=== PATIENT | female | born 1950 | race Hispanic/Latino ===

== ENCOUNTER 2017-11-22 17:10 | Inpatient (IN) | payer MEDICARE, OTHER ==
--- NOTE | 2017-11-22 17:44 | ED PDOC ---
Arrival/HPI - General Chief Complaint: Syncope Time Seen by Provider: 11/22/17 17:11 Historian: Patient - History of Present Illness Narrative History of Present Illness (Text): 11/22/17 17:35 67 year old claustrophobic female, with past medical history of hypertension, was referred to the Emergency department by her PMD, Dr. Waite for tachycardia today. Patient informs possible syncopal episode Wednesday, for which she was seen in the Urgent Care and later discharged home. Patient denies hitting her head or any other trauma. Patient informs visiting her PMD today, where she had an elevated heart rate bringing her to the Emergency department. Patient denies any fever, headache, chills, nausea, vomiting, diarrhea, chest pain, shortness of breath or any other complaints. PMD: Dr. Waite Time/Duration: Prior to Arrival Symptom Onset: Gradual Symptom Course: Unchanged Context: Other (PMD's office) Past Medical History - Provider Review Nursing Documentation Reviewed: Yes - Infectious Disease Hx of Infectious Diseases: None - Reproductive Menopause: Yes - Psychiatric Hx Anxiety: Yes Hx Substance Use: No - Anesthesia Hx Anesthesia: No Family/Social History - Physician Review Nursing Documentation Reviewed: Yes Family/Social History: No Known Family HX Smoking Status: Current Some Days Smoker Hx Alcohol Use: No Hx Substance Use: No Allergies/Home Meds Allergies/Adverse Reactions: Allergies No Known Allergies Allergy (Unverified 11/22/17 17:26) Home Medications: Home Meds Medication Instructions Recorded Confirmed Albuterol HFA [Ventolin HFA 90 0.09 mg IH PRN PRN 11/22/17 11/22/17 mcg/actuation (8 g)] Lisinopril [Zestril] 20 mg PO DAILY 11/22/17 11/22/17 Review of Systems - Physician Review All systems were reviewed & negative as marked: Yes - Review of Systems Constitutional: absent: Fevers Respiratory: absent: SOB Cardiovascular: Other (tachycardia). absent: Chest Pain Gastrointestinal: absent: Abdominal Pain, Diarrhea, Nausea, Vomiting Neurological: absent: Headache Physical Exam Vital Signs Reviewed: Yes Vital Signs Temp Pulse Resp BP Pulse Ox 11/22/17 18:06 140 H 144/80 11/22/17 17:25 97.9 F 145 H 24 143/70 97 Temperature: Afebrile Blood Pressure: Normal Pulse: Tachycardic Respiratory Rate: Normal Appearance: Positive for: Well-Appearing, Non-Toxic, Comfortable Pain Distress: None Mental Status: Positive for: Alert and Oriented X 3 - Systems Exam Head: Present: Atraumatic, Normocephalic Pupils: Present: PERRL Extroacular Muscles: Present: EOMI Conjunctiva: Present: Normal Mouth: Present: Moist Mucous Membranes Neck: Present: Normal Range of Motion Respiratory/Chest: Present: Clear to Auscultation, Good Air Exchange. No: Respiratory Distress, Accessory Muscle Use Cardiovascular: Present: Regular Rate and Rhythm, Normal S1, S2. No: Murmurs Abdomen: No: Tenderness, Distention, Peritoneal Signs Back: Present: Normal Inspection Upper Extremity: Present: Normal Inspection. No: Cyanosis, Edema Lower Extremity: Present: Normal Inspection. No: Edema Neurological: Present: GCS=15, CN II-XII Intact, Speech Normal Skin: Present: Warm, Dry, Normal Color. No: Rashes Psychiatric: Present: Alert, Oriented x 3, Normal Insight, Normal Concentration Medical Decision Making ED Course and Treatment: 11/22/17 17:47 Impression: 67 year old female presents to the Emergency department for tachycardia and possible syncopal episode. Plan: -- EKG -- Labs -- Chest X-ray -- Urinalysis -- Reassess and disposition Progress Notes: 11/22/17 17:40 EKG: Ordered, reviewed, and independently interpreted the EKG. Rate : 144 BPM Rhythm : Atrial flutter - Lab Interpretations Lab Results: 11/22/17 17:40 11/22/17 17:40 Lab Results 11/22/17 17:55: POC Glucose (mg/dL) 91 11/22/17 17:40: Sodium 141, Potassium 4.1, Chloride 104, Carbon Dioxide 24, Anion Gap 17, BUN 17, Creatinine 1.0, Est GFR ( Amer) > 60, Est GFR (Non- Af Amer) 55, Random Glucose 93, Calcium 9.4, Magnesium 2.0, Total Bilirubin 0.3 , AST 20, ALT 26, Alkaline Phosphatase 73, Lactate Dehydrogenase 441, Total Creatine Kinase 69, Troponin I Pending, NT-Pro-B Natriuret Pep Pending, Total Protein 7.3, Albumin 4.0, Globulin 3.4, Albumin/Globulin Ratio 1.2 11/22/17 17:40: WBC 7.8, RBC 4.82, Hgb 13.6, Hct 41.6, MCV 86.3, MCH 28.2, MCHC 32.7, RDW 14.3, Plt Count 262, MPV 9.8, Gran % 56.7, Lymph % (Auto) 35.1 H, [place] % (Auto) 6.6 H, Eos % (Auto) 1.3 L, Baso % (Auto) 0.3, Gran # 4.40, Lymph # (Auto) 2.7, [place] # (Auto) 0.5, Eos # (Auto) 0.1, Baso # (Auto) 0.02 - RAD Interpretation Narrative RAD Interpretations (Text): 11/22/17 18:13 Chest X-ray reviewed by radiologist, shows patchy airspace disease in the right lower lobe may represent atelectasis or pneumonia. Follow-up is advised. Radiology Orders: 11/22/17 17:27 CHEST PORTABLE [RAD] Stat Salvage Repairer: Radiologist - Medication Orders Current Medication Orders: Discontinued Medications Diltiazem HCl (Cardizem) 20 mg IVP STAT STA Stop: 11/22/17 17:54 Last Admin: 11/22/17 18:06 Dose: 20 mg IVP Administration Document 11/22/17 18:06 CAROLINA (Rec: 11/22/17 18:11 CAROLINA [id number]) Charges for Administration # of IVP Administrations 1 OCT Pulse and Blood Pressure Document 11/22/17 18:06 CAROLINA (Rec: 11/22/17 18:11 CAROLINA [id number]) Pulse Pulse Rate (60-90) 140 Blood Pressure Blood Pressure (100/60-150/90) 144/80 - Scribe Statement The provider has reviewed the documentation as recorded by the Scribe Jairo Motta. All medical record entries made by the Scribe were at my direction and personally dictated by me. I have reviewed the chart and agree that the record accurately reflects my personal performance of the history, physical exam, medical decision making, and the department course for this patient. I have also personally directed, reviewed, and agree with the discharge instructions and disposition. Disposition/Present on Arrival - Present on Arrival History of DVT/PE: No History of Uncontrolled Diabetes: No Urinary Catheter: No History of Decub. Ulcer: No History Surgical Site Infection Following: None - Disposition Forms: [employer] (Croatian)
--- NOTE | 2017-11-22 18:00 | RAD ---
HISTORY: Chest pain COMPARISON: No prior. FINDINGS: LUNGS: The lungs are hyperinflated and there is peribronchial thickening with chronic changes in both lungs. . There is patchy airspace disease in the right lower lobe. No active pulmonary disease. PLEURA: No significant pleural effusion identified, no pneumothorax apparent. CARDIOVASCULAR: Normal. OSSEOUS STRUCTURES: There are old fracture deformities in the right posterior 7th and 8th ribs. VISUALIZED UPPER ABDOMEN: Normal. OTHER FINDINGS: None. IMPRESSION: Patchy airspace disease in the right lower lobe may represent atelectasis or pneumonia. Follow-up is advised
[2017-11-22 18:05] LABS: BASO # 0.02 K/mm3 (0.0-2.0); BASO % 0.3 % (0.0-3.0); EOS # 0.1 (0.0-0.7); EOS % 1.3 % (1.5-5.0); GRAN # 4.4 (1.4-6.5); GRAN % 56.7 % (50.0-68.0); HEMOGLOBIN 13.6 g/dL (12.0-16.0); LYMPH # 2.7 (1.2-3.4); LYMPH % 35.1 % (22.0-35.0); MEAN CELL VOLUME 86.3 fl (80.0-105.0); MEAN CORPUSCULAR HEMOGLOBIN 28.2 pg (25.0-35.0); MEAN CORPUSCULAR HGB CONC 32.7 g/dl (31.0-37.0); MEAN PLATELET VOLUME 9.8 fl (7.0-11.0); MONO # 0.5 (0.1-0.6); MONO % 6.6 % (1.0-6.0); RBC 4.82 10^6/uL (3.5-6.1); RED CELL DISTRIBUTION WIDTH 14.3 % (11.5-14.5); WHITE BLOOD COUNT 7.8 10^3/ul (4.5-11.0)
[2017-11-22 18:08] LABS: ALB/GLOB RATIO 1.2 (1.1-1.8); ALT/SGPT 26 U/L (7-56); AST/SGOT 20 U/L (14-36); BLOOD UREA NITROGEN 17 mg/dL (7-21); CALCIUM 9.4 mg/dL (8.4-10.5); GFR AFRICAN-AMERICAN > 60; GFR NON-AFRICAN AMERICAN 55
[2017-11-22 18:13] LABS: INR 1.06 (0.93-1.08); PARTIAL THROMBOPLASTIN TIME 29.5 Seconds (25.1-36.5); PROTHROMBIN TIME 12.1 SECONDS (9.4-12.5)
[2017-11-22 18:20] LABS: B-TYPE NATRIURETIC PEPTIDE 777 pg/mL (0-450); TROPONIN I < 0.01 ng/mL
[2017-11-22] MEDS ORDERED: diltiaZEM IVPB 100mg in NS 100 ML IV PRN (18:22)
[2017-11-22] MEDS ORDERED: Enoxaparin 80 mg Syringe SC STA (18:44)
--- NOTE | 2017-11-22 19:30 | ED PDOC ---
Physical Exam Vital Signs Temp Pulse Resp BP Pulse Ox 11/22/17 18:45 136 H 20 132/77 99 11/22/17 18:10 140 H 20 120/71 98 11/22/17 18:06 140 H 144/80 11/22/17 17:25 97.9 F 145 H 24 143/70 97 Finger Stick Blood Glucose: 91 Medical Decision Making ED Course and Treatment: 11/22/17 19:27 Case was d/w soccer ball assembler .To evaluate pt. in Emergency department for ICU admission.Dr. Christopher previously discussed case with PMD who accepted to his service and agreed with CCU admit. 11/22/17 19:53 Pt. seen and evaluated by medical accountant and soccer ball assembler .Pt.admitted to CCU for further management. - Critical Care Critical Care Minutes: 45 minutes Narrative Critical Care (Text): 11/22/17 19:10 Case endorsed to me from awaiting ICU consultation.Pt. with hx. of hypertension from PMD office for onset rapid atrial fibrillation.Hx. of syncopal episode days prior treated in an Urgent Care center and released.Currently on Cardizem drip to control heart rate.Pt. was anticoagulated prior with Lovenox. - Lab Interpretations Lab Results: 11/22/17 17:40 11/22/17 17:40 Lab Results 11/22/17 17:55: POC Glucose (mg/dL) 91 11/22/17 17:40: Sodium 141, Potassium 4.1, Chloride 104, Carbon Dioxide 24, Anion Gap 17, BUN 17, Creatinine 1.0, Est GFR ( Amer) > 60, Est GFR (Non- Af Amer) 55, Random Glucose 93, Calcium 9.4, Magnesium 2.0, Total Bilirubin 0.3 , AST 20, ALT 26, Alkaline Phosphatase 73, Lactate Dehydrogenase 441, Total Creatine Kinase 69, Troponin I < 0.01, NT-Pro-B Natriuret Pep 777 H, Total Protein 7.3, Albumin 4.0, Globulin 3.4, Albumin/Globulin Ratio 1.2 11/22/17 17:40: PT 12.1, INR 1.06, APTT 29.5 11/22/17 17:40: WBC 7.8, RBC 4.82, Hgb 13.6, Hct 41.6, MCV 86.3, MCH 28.2, MCHC 32.7, RDW 14.3, Plt Count 262, MPV 9.8, Gran % 56.7, Lymph % (Auto) 35.1 H, [place] % (Auto) 6.6 H, Eos % (Auto) 1.3 L, Baso % (Auto) 0.3, Gran # 4.40, Lymph # (Auto) 2.7, [place] # (Auto) 0.5, Eos # (Auto) 0.1, Baso # (Auto) 0.02 - RAD Interpretation Radiology Orders: 11/22/17 17:27 CHEST PORTABLE [RAD] Stat - Medication Orders Current Medication Orders: diltiaZEM IVPB 100mg in NS (Cardizem 100mg In Ns) 100 mls @ 5 mls/hr IV .Q20H PRN; Protocol; 5 MG/HR PRN Reason: TITRATE PER MD ORDER Last Admin: 11/22/17 18:52 Dose: 5 mls/hr eMAR Start Stop Document 11/22/17 18:52 CAROLINA (Rec: 11/22/17 18:52 CAROLINA [id number]) Intravenous Solution Start Date 11/22/17 Start Time 18:52 Discontinued Medications Diltiazem HCl (Cardizem) 20 mg IVP STAT STA Stop: 11/22/17 17:54 Last Admin: 11/22/17 18:06 Dose: 20 mg IVP Administration Document 11/22/17 18:06 CAROLINA (Rec: 11/22/17 18:11 CAROLINA [id number]) Charges for Administration # of IVP Administrations 1 MAR Pulse and Blood Pressure Document 11/22/17 18:06 CAROLINA (Rec: 11/22/17 18:11 CAROLINA [id number]) Pulse Pulse Rate (60-90 beats/min) 140 Blood Pressure Blood Pressure (100/60-150/90 mm Hg) 144/80 Enoxaparin Sodium (Lovenox) 80 mg SC STAT STA PRN Reason: Protocol Stop: 11/22/17 18:45 Last Admin: 11/22/17 18:52 Dose: 80 mg Subcutaneous Administrations Document 11/22/17 18:52 CAROLINA (Rec: 11/22/17 18:53 CAROLINA [id number]) Injection Site MAR Injection Site Left Abdomen Charges for Administration # of Subcutaneous Administrations 1 Disposition/Present on Arrival - Present on Arrival Any Indicators Present on Arrival: No History of DVT/PE: No History of Uncontrolled Diabetes: No Urinary Catheter: No History of Decub. Ulcer: No History Surgical Site Infection Following: None - Disposition Have Diagnosis and Disposition been Completed?: Yes Diagnosis: Rapid atrial fibrillation Disposition: HOSPITALIZED Disposition Time: 19:53 Patient Plan: Admission Condition: STABLE Referrals: Abdiaziz Arceo MD [Primary Care Provider] - Follow up with primary Forms: [employer] (Tajik)
--- NOTE | 2017-11-22 20:32 | CP.PCM.CON ---
History of Present Illness - History of Present Illness History of Present Illness: ICU Consult Note This is a 67yo female with past medical history of HTN and tobacco abuse here for rapid heart rate. She was at Dr. Arceo's office when she was found to be tachycardic. Patient was found to be in a.fib in the office and was sent to the ED. Patient reports she did have a pre-syncopal episode the other day where she felt dizzy, but did not lose consciousness and did not hit her head. She felt heart palpitations but denies chest pain, shortness of breath, nausea/vomiting/ diarrhea, fever/chills, or recent travel. She has never seen a ip paralegal before. In ED, the EKG showed a.flutter with 2:1 conduction and was placed on Cardizem drip. She received therapeutic dose of Lovenox in the ED. ICU was consulted for further management. Past medical history: HTN, tobacco abuse, PE 30yrs ago, depression Past surgical history: Cholecystectomy, ventral hernia repair Home meds: Lisinopril, Celexa All: NKDA Social history: Heavy smoker for many yrs, denies EtOH or drug use. Lives with family Family history: DM, HTN PMD: Dr. Arceo Review of Systems - Review of Systems Review of Systems: As per HPI Past Patient History - Infectious Disease Hx of Infectious Diseases: None - Past Social History Smoking Status: Current Some Days Smoker - PSYCHIATRIC Hx Anxiety: Yes Hx Substance Use: No - ANESTHESIA Hx Anesthesia: No Meds Allergies/Adverse Reactions: Allergies Allergy/AdvReac Type Severity Reaction Status Date / Time No Known Allergies Allergy Unverified 11/22/17 17:26 - Medications Medications: Current Medications Famotidine (Pepcid) 20 mg PO BID YASMEEN diltiaZEM IVPB 100mg in NS (Cardizem 100mg In Ns) 100 mls @ 5 mls/hr IV .Q20H PRN; Protocol; 5 MG/HR PRN Reason: TITRATE PER MD ORDER Last Admin: 11/22/17 18:52 Dose: 5 mls/hr Physical Exam - Constitutional Appears: No Acute Distress - Head Exam Head Exam: ATRAUMATIC, NORMAL INSPECTION, NORMOCEPHALIC - Eye Exam Eye Exam: Normal appearance, PERRL Pupil Exam: NORMAL ACCOMODATION, PERRL - ENT Exam ENT Exam: Mucous Membranes Moist - Respiratory Exam Respiratory Exam: Clear to Auscultation Bilateral, NORMAL BREATHING PATTERN. absent: Rales, Rhonchi, Wheezes - Cardiovascular Exam Cardiovascular Exam: Tachycardia, Irregular Rhythm, +S1, +S2. absent: Gallop, Rubs, Systolic Murmur - GI/Abdominal Exam GI & Abdominal Exam: Hernia (large ventral hernia ), Normal Bowel Sounds, Soft. absent: Guarding, Rigid, Tenderness - Extremities Exam Extremities exam: Positive for: normal inspection. Negative for: calf tenderness, pedal edema - Neurological Exam Neurological exam: Alert, CN II-XII Intact, Normal Gait, Oriented x3 - Psychiatric Exam Psychiatric exam: Normal Affect, Normal Mood - Skin Skin Exam: Dry, Intact, Normal Color, Warm Results - Vital Signs Recent Vital Signs: Last Vital Signs Temp 97.9 F 11/22/17 17:25 Pulse 136 H 11/22/17 18:45 Resp 20 11/22/17 18:45 BP 132/77 11/22/17 18:45 Pulse Ox 99 11/22/17 18:45 - Labs Result Diagrams: 11/22/17 17:40 11/22/17 17:40 Labs: Laboratory Results - last 24 hr 11/22/17 11/22/17 11/22/17 17:40 17:40 17:40 WBC 7.8 RBC 4.82 Hgb 13.6 Hct 41.6 MCV 86.3 MCH 28.2 MCHC 32.7 RDW 14.3 Plt Count 262 MPV 9.8 Gran % 56.7 Lymph % (Auto) 35.1 H [place] % (Auto) 6.6 H Eos % (Auto) 1.3 L Baso % (Auto) 0.3 Gran # 4.40 Lymph # (Auto) 2.7 [place] # (Auto) 0.5 Eos # (Auto) 0.1 Baso # (Auto) 0.02 PT 12.1 INR 1.06 APTT 29.5 Sodium 141 Potassium 4.1 Chloride 104 Carbon Dioxide 24 Anion Gap 17 BUN 17 Creatinine 1.0 Est GFR ( Amer) > 60 Est GFR (Non-Af Amer) 55 POC Glucose (mg/dL) Random Glucose 93 Calcium 9.4 Magnesium 2.0 Total Bilirubin 0.3 AST 20 ALT 26 Alkaline Phosphatase 73 Lactate Dehydrogenase 441 Total Creatine Kinase 69 Troponin I < 0.01 NT-Pro-B Natriuret Pep 777 H Total Protein 7.3 Albumin 4.0 Globulin 3.4 Albumin/Globulin Ratio 1.2 11/22/17 17:55 WBC RBC Hgb Hct MCV MCH MCHC RDW Plt Count MPV Gran % Lymph % (Auto) [place] % (Auto) Eos % (Auto) Baso % (Auto) Gran # Lymph # (Auto) [place] # (Auto) Eos # (Auto) Baso # (Auto) PT INR APTT Sodium Potassium Chloride Carbon Dioxide Anion Gap BUN Creatinine Est GFR ( Amer) Est GFR (Non-Af Amer) POC Glucose (mg/dL) 91 Random Glucose Calcium Magnesium Total Bilirubin AST ALT Alkaline Phosphatase Lactate Dehydrogenase Total Creatine Kinase Troponin I NT-Pro-B Natriuret Pep Total Protein Albumin Globulin Albumin/Globulin Ratio Assessment & Plan - Assessment and Plan (Free Text) Assessment: This is a 67yo female with past medical history of HTN, PE (30yrs ago), depression and tobacco abuse here for atrial flutter. Plan: Neurology: Patient A&O x 3 CV: A.flutter on EKG 2:1 conduction On Cardizem drip- pt continues to be tachy If tachycardia continues will give amiodarone bolus and will switch to amio drip and d/c cardizem Troponin <0.01 x 1- will trend Therapeutic Lovenox Will check TSH, HgbA1c, Lipid panel Serial EKG Echo ordered Cardio consulted- pt requested to be seen by Dr. Kruger Pulm: Tobacco abuse- not diagnosed with COPD Maintain spO2>90% Aspiration precaution Duoneb prn Pt refused nicotine patch at this time GI: Pepcid Heart healthy diet Heme: Hgb stable no overt signs of bleeding Nephro: Will monitor electrolytes and replace as needed ID: No sign of infection at this time. Endo: Maintain euvolemia, euglycemia GI ppx: Pepcid DVT ppx: Lovenox Case seen, discussed and reviewed with attending. Temo Villanueva PGY2 - Date & Time Date: 11/22/17 Time: 20:34
[2017-11-22] MEDS ORDERED: Albuterol-Ipratrop 3 mg / 0.5 (3 ml) UD IH PRN (20:39)
[2017-11-22 21:03] LABS: HDL CHOLESTEROL 45 mg/dL (29-60)
[2017-11-22 21:07] LABS: LDL CHOLESTEROL 148 mg/dL (0-129)
[2017-11-22] MEDS ORDERED: Amiodarone 150 mg/D5W 100 ml 150 MG/100 ML BAG IVPB ONE (21:57)
[2017-11-22] MEDS ORDERED: Amiodarone 360 mg/D5W 200 ml 360 MG/200 ML BAG IV SCH ×2 (22:00→22:26)
[2017-11-22] MEDS ORDERED: Amiodarone 360 mg/D5W 200 ml 360 MG/200 ML BAG IV ONE ×2 (22:27→22:30)
[2017-11-23] LABS: TROPONIN I < 0.01 ng/mL
[2017-11-23 02:00] VITALS: BMI 33.8
[2017-11-23] MEDS ORDERED: DiphenhydrAMINE 50 mg/ml Inj IVP ONE (02:29)
[2017-11-23] MEDS ORDERED: Amiodarone 360 mg/D5W 200 ml 360 MG/200 ML BAG IV SCH (04:30)
[2017-11-23 06:55] LABS: BASO # 0.01 K/mm3 (0.0-2.0); BASO % 0.1 % (0.0-3.0); EOS # 0.1 (0.0-0.7); EOS % 1.8 % (1.5-5.0); GRAN # 3.57 (1.4-6.5); GRAN % 48.7 % (50.0-68.0); HEMOGLOBIN 12.3 g/dL (12.0-16.0); LYMPH # 3.1 (1.2-3.4); LYMPH % 42.2 % (22.0-35.0); MEAN CELL VOLUME 86.1 fl (80.0-105.0); MEAN CORPUSCULAR HEMOGLOBIN 27.6 pg (25.0-35.0); MEAN CORPUSCULAR HGB CONC 32.1 g/dl (31.0-37.0); MEAN PLATELET VOLUME 10.1 fl (7.0-11.0); MONO # 0.5 (0.1-0.6); MONO % 7.2 % (1.0-6.0); RBC 4.45 10^6/uL (3.5-6.1); RED CELL DISTRIBUTION WIDTH 14.5 % (11.5-14.5); WHITE BLOOD COUNT 7.3 10^3/ul (4.5-11.0)
[2017-11-23 07:27] LABS: TROPONIN I < 0.01 ng/mL
[2017-11-23 07:42] LABS: ALB/GLOB RATIO 1.2 (1.1-1.8); ALBUMIN 3.6 g/dL (3.0-4.8); ALT/SGPT 19 U/L (7-56); AST/SGOT 20 U/L (14-36); BLOOD UREA NITROGEN 18 mg/dL (7-21); CALCIUM 9.4 mg/dL (8.4-10.5); GFR AFRICAN-AMERICAN 60; GFR NON-AFRICAN AMERICAN 49
[2017-11-23] MEDS ORDERED: Metoprolol 1 mg/ml Inj IVP SCH ×2 (08:45→14:00)
[2017-11-23 09:20] LABS: FREE T4 1.31 ng/dL (0.78-2.19)
[2017-11-23] MEDS ORDERED: Sodium Chloride 0.9% 1,000 ML IV STA (09:31)
[2017-11-23 09:33] LABS: T3 1.25 ng/mL (0.97-1.69)
--- NOTE | 2017-11-23 10:20 | CARD ---
APPROVED REPORT EKG Measurement Heart [id number] <Conclusion> A. Flutter with 2:1 conduction PRWP. Possible ASMI, age unknown NSSTW changes Prolonged QTc
--- NOTE | 2017-11-23 10:42 | PN ---
DATE: 11/23/2017 SUBJECTIVE: This is a 67-year-old lady with history of hypertension, depression, who presented this time after referral from PMD's office where she was found to be tachycardic and having near syncopal episode. The patient did not loss consciousness; however, did not hit her head. She denies chest pain, shortness of breath, nausea, vomiting, diarrhea, fever, chills or recent travel. The patient has never seen firer tunnel kiln before. When worked up in emergency department, the patient was found to have A flutter with 2:1 conduction and Cardizem drip was started. She was also started on therapeutic anticoagulation and was transferred to ICU for further management and monitoring. PAST MEDICAL HISTORY: Hypertension, pulmonary embolism 30 years ago, depression. PAST SURGICAL HISTORY: Cholecystectomy, ventral hernia repair. MEDICATIONS AT HOME: Celexa, lisinopril and albuterol. SOCIAL HISTORY: The patient is active smoker. No alcohol or illicit drug abuse. FAMILY HISTORY: Noncontributory. REVIEW OF SYSTEMS: Review of 12-organ system other than mentioned in history of present illness is negative. PHYSICAL EXAMINATION: VITAL SIGNS: Heart rate 126 (the patient received 5 mg IV metoprolol and also was on amiodarone drip as well), blood pressure varies between 97 systolic and 103 systolic and diastolic between 57 and 65. Oxygen saturation 96%, respiratory rate 18, 19. The patient is afebrile. ENT: Head and neck atraumatic. LUNGS: Clear to auscultation bilaterally. HEART: Regular rate and rhythm. S1 and S2 normal. ABDOMEN: Soft, nontender and nondistended. MUSCULOSKELETAL: No C/C/E. NEUROLOGIC: The patient moves all extremities spontaneously. SKIN: Moist. PSYCH: The patient is a little bit jittery. LABORATORY DATA: TSH 0.3 (T3 and T4 are pending). Sodium 139; potassium 4.2; chloride 105; carbon dioxide 25; BUN 18; creatinine 1.1, up from 1.0; glucose of 88. INR 1.06 (the patient is on therapeutic anticoagulation with Lovenox). Chest x-ray showed questionable right lower lobe infiltrate. Maybe small pleural effusion bilaterally. EKG showed atrial flutter with 2:1 conduction. ASSESSMENT AND PLAN: This is a 67-year-old lady who presented with atrial flutter and near syncopal episode. She maintains borderline normotension; and thus was not immediately cardioverted, however, despite Cardizem, amiodarone attempts/trials, her heart rate was not controlled. Metoprolol 5 mg IV x1 was given without significant effect. Her initial TSH came back slightly low, thus, initially, consideration was given to hyperthyroidism-related aflutter with RVR, T3, T4 and repeated TSH was sent. Meanwhile, hydrocortisone and methimazole started to treat presumed hyperthyroidism. Metoprolol 5 mg IV q6h continued. At the same time received call from Dr. Kruger , who wanted to perform cardioversion today. Later in the morning--repeated TSH as well as T3, T4 returned negative, methimazole was stopped. Echocardiogram: unable to qualitate LVEF due to rapid aflutter, but quantitatively reported 41%, RV-ok, moderate TR. Both atria were reported to be wnl. Leftover (once hyperthyroidism and structural cardiac abnormalities were ruled out) differential diagnosis for aflutter with RVR included: idiopathic, infection (sepsis/pneumonia/copd exacerbation), dehydration, VTE, lung disease ( patient appears to have severe COPD and is active smoker). Patient received 1L of NS bolus with improved BP somewhat. CT with PE protocol: no PE, but severe emphysema, air trapping? RLL segmental atelectasis vs fluid in the fissure vs ( cant rule out consolidation, but less likely) and b/l pleural effusion, mediastinal LAD, goiter with retrosternal extension. Based on the findings ( plus clinical picture: cough with yellowish sputum production, some rhonchi), ceftriaxone/azithro started, blood culture, urine culture, procal were ordered, endocrine consult was requested and thyroidal ultrasound will be ordered. ABG ordered, steroids intitiated with LAMA q6 and xopenex prn. chest PT, IS, postural drainage were ordered. Venous doppler LE was negative for DVT. Would avoid maintainance fluid to prevent fluid overload-->if need be, will use boluses. Patient is on TAC with lovenox in anticipation of cardioversion and to prevent stroke in the setting of aflutter. We will continue to target euvolemia , euglycemia, normothermia and oxygen saturation more than 90%. We will continue with GI prophylaxis. Addendum: Patient had breakfast, before decision to cardiovert was made--> cardioversion was re-scheduled for tomorrow am ccm time 40 min Mahin Figueredo MD MTDApryl
--- NOTE | 2017-11-23 10:50 | CARD ---
APPROVED REPORT EXAM: Two-dimensional and M-mode echocardiogram with Doppler and color Doppler. INDICATION A-FLUTTER 2D DIMENSIONS Left Atrium (2D)3.4 (1.6-4.0cm)IVSd1.3 (0.7-1.1cm) LVDd4.9 (3.9-5.9cm)PWd1.0 (0.7-1.1cm) LVDs3.9 (2.5-4.0cm)FS (%) 20.2 % LVEF (%)41.2 (>50%) M-Mode DIMENSIONS Aortic Root2.60 (2.2-3.7cm)Aortic Cusp Exc.1.70 (1.5-2.0cm) Aortic Valve AoV Peak Ssqhnwhi005.0cm/Matt Peak GR.8mmHg Mitral Valve E/A ratio0.0 TDI E/Lateral E'0.0E/Medial E'0.0 Tricuspid Valve TR Peak [id number] [id number] Peak Gr.28mmHg [id number] LEFT VENTRICLE The left ventricle is normal size. There is mild septalr hypertrophy. Due to the presence of rapid atrial fibrillation, left ventricular ejection fraction cannot be assessed. RIGHT VENTRICLE The right ventricle is normal size. The right ventricular systolic function is normal. ATRIA The left atrium size is normal. The right atrium size is normal. The inferior vena cava is dilated. The interatrial septum is intact with no evidence for an atrial septal defect. AORTIC VALVE The aortic valve is normal in structure. No aortic regurgitation is present. MITRAL VALVE The mitral valve is mildly thickened. Mitral regurgitation is mild. TRICUSPID VALVE The tricuspid valve is normal in structure. There is moderate tricuspid regurgitation. PULMONIC VALVE The pulmonary valve is normal in structure. GREAT VESSELS The aortic root is normal in size. PERICARDIAL EFFUSION There is no pleural effusion. There is no pericardial effusion. <Conclusion> Normal chamber size. Mild septal hypertrophy. LV systolic function difficult to assess due to presence of rapid atrial fibrillation. Mild MR. Moderate TR.
--- NOTE | 2017-11-23 10:52 | CARD ---
APPROVED REPORT EKG Measurement Heart [id number] <Conclusion> Atrial flutter with 2:1 AV conduction Right axis deviation Low voltage QRS Cannot rule out Anterior infarct, age undetermined Marked ST abnormality, possible inferior subendocardial injury Abnormal ECG
[2017-11-23] MEDS ORDERED: Iohexol 350 MG/100 ML VIAL ONE (11:01)
[2017-11-23] MEDS ORDERED: Iodixanol 320 MG/ML 100 ML BOTTLE IV ONE (11:41)
--- NOTE | 2017-11-23 11:53 | CP.CCUPN ---
<Sidney Manning - Last Filed: 11/23/17 11:54> CCU Subjective - Physician Review Subjective (Free Text): Critical Care progress note: Pt seen and examined at bedside. No acute events overnight. Pt Denies any chest pain or sob at this time. No complaints. 12 Point ROS performed and neg other than stated above. 11/23/17 11:54 Critical Care Time Spent (in minutes): 45 CCU Objective - Vital Signs / Intake & Output Vital Signs (Last 4 hours): Vital Signs Pulse BP 11/23/17 08:53 131 H 103/57 L Intake and Output (Last 8hrs): Intake & Output 11/22/17 11/23/17 11/23/17 22:59 06:59 14:59 Intake Total 35 Balance 35 Weight 179 lb Intake: IV 35 Other: Voiding Method Toilet - Physical Exam Head: Positive for: Atraumatic, Normocephalic Pupils: Positive for: PERRL Extroacular Muscles: Positive for: EOMI Conjunctiva: Positive for: Normal Mouth: Positive for: Moist Mucous Membranes Neck: Positive for: Normal Range of Motion Respiratory/Chest: Positive for: Good Air Exchange, Wheezes. Negative for: Respiratory Distress, Accessory Muscle Use Cardiovascular: Positive for: Regular Rate and Rhythm, Normal S1, S2. Negative for: Murmurs Abdomen: Negative for: Tenderness, Distention, Peritoneal Signs Back: Positive for: Normal Inspection Upper Extremity: Positive for: Normal Inspection. Negative for: Cyanosis, Edema Lower Extremity: Positive for: Normal Inspection. Negative for: Edema Neurological: Positive for: GCS=15, CN II-XII Intact, Speech Normal Skin: Positive for: Warm, Dry, Normal Color. Negative for: Rashes Psychiatric: Positive for: Alert, Oriented x 3, Normal Insight, Normal Concentration - Medications Active Medications: Active Medications Generic Name Dose Route Start Last Admin Trade Name Freq PRN Reason Stop Dose Admin Albuterol/Ipratropium 3 ml 11/22/17 20:39 11/22/17 21:35 Duoneb 3 Mg/0.5 Mg (3 Ml) Ud IH 3 ml Q2H PRN Administration Shortness of Breath Budesonide 0.5 mg 11/23/17 20:00 Pulmicort Respules IH [id number] [facility] Enoxaparin Sodium 80 mg 11/23/17 12:00 Lovenox SC Q12 [facility] Protocol Famotidine 20 mg 11/23/17 10:00 11/23/17 09:04 Pepcid PO 20 mg BID YASMEEN Administration Ipratropium [place] 0.5 mg 11/23/17 14:00 Atrovent IH [id number] [facility] Metoprolol Tartrate 5 mg 11/23/17 08:45 11/23/17 08:53 Lopressor IVP 5 mg Q6H YASMEEN Administration - Patient Studies Lab Studies: Lab Studies 11/23/17 11/23/17 11/23/17 Range/Units 08:30 07:33 05:50 WBC (4.5-11.0) 10^3/ul RBC (3.5-6.1) 10^6/uL Hgb (12.0-16.0) g/dL Hct (36.0-48.0) % MCV (80.0-105.0) fl MCH (25.0-35.0) pg MCHC (31.0-37.0) g/dl RDW (11.5-14.5) % Plt Count (120.0-450.0) 10^3/uL MPV (7.0-11.0) fl Gran % (50.0-68.0) % Lymph % (Auto) (22.0-35.0) % [place] % (Auto) (1.0-6.0) % Eos % (Auto) (1.5-5.0) % Baso % (Auto) (0.0-3.0) % Gran # (1.4-6.5) Lymph # (Auto) (1.2-3.4) [place] # (Auto) (0.1-0.6) Eos # (Auto) (0.0-0.7) Baso # (Auto) (0.0-2.0) K/mm3 Sodium 139 (132-148) mmol/L Potassium 4.2 (3.6-5.0) mmol/L Chloride 105 (98-107) mmol/L Carbon Dioxide 25 (21-33) mmol/L Anion Gap 13 (10-20) BUN 18 (7-21) mg/dL Creatinine 1.1 (0.7-1.2) mg/dl Est GFR ( Amer) 60 Est GFR (Non-Af Amer) 49 Random Glucose 88 (70-110) mg/dL Calcium 9.4 (8.4-10.5) mg/dL Total Bilirubin 0.2 (0.2-1.3) mg/dL AST 20 (14-36) U/L ALT 19 (7-56) U/L Alkaline Phosphatase 62 (38-126) U/L Lactate Dehydrogenase 419 (333-699) U/L Total Creatine Kinase 96 (35-230) U/L Troponin I < 0.01 ng/mL Total Protein 6.8 (5.8-8.3) g/dL Albumin 3.6 (3.0-4.8) g/dL Globulin 3.1 gm/dL Albumin/Globulin Ratio 1.2 (1.1-1.8) Free T4 1.31 (0.78-2.19) ng/dL Thyroxine (T4) 10.0 (5.5-11.0) ug/dL Free T3 pg/mL 3.99 (2.77-5.27) pg/mL Total T3 1.25 (0.97-1.69) ng/mL TSH 3rd Generation 0.58 (0.46-4.68) mIU/mL 11/23/17 11/22/17 Range/Units 05:50 23:25 WBC 7.3 (4.5-11.0) 10^3/ul RBC 4.45 (3.5-6.1) 10^6/uL Hgb 12.3 (12.0-16.0) g/dL Hct 38.3 (36.0-48.0) % MCV 86.1 (80.0-105.0) fl MCH 27.6 (25.0-35.0) pg MCHC 32.1 (31.0-37.0) g/dl RDW 14.5 (11.5-14.5) % Plt Count 252 (120.0-450.0) 10^3/uL MPV 10.1 (7.0-11.0) fl Gran % 48.7 L (50.0-68.0) % Lymph % (Auto) 42.2 H (22.0-35.0) % [place] % (Auto) 7.2 H (1.0-6.0) % Eos % (Auto) 1.8 (1.5-5.0) % Baso % (Auto) 0.1 (0.0-3.0) % Gran # 3.57 (1.4-6.5) Lymph # (Auto) 3.1 (1.2-3.4) [place] # (Auto) 0.5 (0.1-0.6) Eos # (Auto) 0.1 (0.0-0.7) Baso # (Auto) 0.01 (0.0-2.0) K/mm3 Sodium (132-148) mmol/L Potassium (3.6-5.0) mmol/L Chloride (98-107) mmol/L Carbon Dioxide (21-33) mmol/L Anion Gap (10-20) BUN (7-21) mg/dL Creatinine (0.7-1.2) mg/dl Est GFR ( Amer) Est GFR (Non-Af Amer) Random Glucose (70-110) mg/dL Calcium (8.4-10.5) mg/dL Total Bilirubin (0.2-1.3) mg/dL AST (14-36) U/L ALT (7-56) U/L Alkaline Phosphatase (38-126) U/L Lactate Dehydrogenase 348 (333-699) U/L Total Creatine Kinase 71 (35-230) U/L Troponin I < 0.01 ng/mL Total Protein (5.8-8.3) g/dL Albumin (3.0-4.8) g/dL Globulin gm/dL Albumin/Globulin Ratio (1.1-1.8) Free T4 (0.78-2.19) ng/dL Thyroxine (T4) (5.5-11.0) ug/dL Free T3 pg/mL (2.77-5.27) pg/mL Total T3 (0.97-1.69) ng/mL TSH 3rd Generation (0.46-4.68) mIU/mL Laboratory Results - last 24 hr 11/22/17 11/23/17 11/23/17 23:25 05:50 05:50 WBC 7.3 RBC 4.45 Hgb 12.3 Hct 38.3 MCV 86.1 MCH 27.6 MCHC 32.1 RDW 14.5 Plt Count 252 MPV 10.1 Gran % 48.7 L Lymph % (Auto) 42.2 H [place] % (Auto) 7.2 H Eos % (Auto) 1.8 Baso % (Auto) 0.1 Gran # 3.57 Lymph # (Auto) 3.1 [place] # (Auto) 0.5 Eos # (Auto) 0.1 Baso # (Auto) 0.01 Sodium 139 Potassium 4.2 Chloride 105 Carbon Dioxide 25 Anion Gap 13 BUN 18 Creatinine 1.1 Est GFR ( Amer) 60 Est GFR (Non-Af Amer) 49 Random Glucose 88 Calcium 9.4 Total Bilirubin 0.2 AST 20 ALT 19 Alkaline Phosphatase 62 Lactate Dehydrogenase 348 419 Total Creatine Kinase 71 96 Troponin I < 0.01 < 0.01 Total Protein 6.8 Albumin 3.6 Globulin 3.1 Albumin/Globulin Ratio 1.2 Free T4 Thyroxine (T4) Free T3 pg/mL Total T3 TSH 3rd Generation 11/23/17 11/23/17 07:33 08:30 WBC RBC Hgb Hct MCV MCH MCHC RDW Plt Count MPV Gran % Lymph % (Auto) [place] % (Auto) Eos % (Auto) Baso % (Auto) Gran # Lymph # (Auto) [place] # (Auto) Eos # (Auto) Baso # (Auto) Sodium Potassium Chloride Carbon Dioxide Anion Gap BUN Creatinine Est GFR ( Amer) Est GFR (Non-Af Amer) Random Glucose Calcium Total Bilirubin AST ALT Alkaline Phosphatase Lactate Dehydrogenase Total Creatine Kinase Troponin I Total Protein Albumin Globulin Albumin/Globulin Ratio Free T4 1.31 Thyroxine (T4) 10.0 Free T3 pg/mL 3.99 Total T3 1.25 TSH 3rd Generation 0.58 EKG/Cardiology Studies: Cardiology / EKG Studies 11/23/17 07:13 EKG [ELECTROCARDIOGRAM] Stat Comment: Reason For Exam: a flutter new onset 11/23/17 18:19 EKG [ELECTROCARDIOGRAM] Stat Comment: Reason For Exam: CHEST PAIN Fingerstick Blood Sugar Results: 91 Review of Systems - Review of Systems All systems: reviewed and no additional remarkable complaints except (HPI) Critical Care Progress Note - Nutrition Nutrition: Nutrition Category Date Time Status Heart Healthy Diet [DIET] Diets 11/22/17 Breakfast Ordered Assessment/Plan - Assessment and Plan (Free Text) Assessment: 67yo female with PMHx of HTN, PE (30yrs ago), depression and tobacco abuse presents with atrial flutter. Neurology: - AAO x 3 CV: - Hemodynamically stable - A.flutter on EKG 2:1 conduction - Initially attempted Cardizem and currently on Amiodarone drip but heart rate still currently in the 120's - Cardio consulted- Dr. Kruger - plan for non emergent cardioversion - Troponin x 3 neg - Therapeutic Lovenox - Serial EKG - Echo pending read - F/u CT chest with PE protocol - F/u ext US - prelim neg for DVT - 1 L NS bolus x 1 Pulm: - Maintain spO2>90% - Aspiration precaution - Duoneb prn - Started on Atrovent and Pulmicort for wheezing GI: - Pepcid for ppx - Heart healthy diet Heme: - H/H stable no overt signs of bleeding Nephro: - Monitor electrolytes and replace as needed ID: - Currently afebrile and no leukocytosis - CXR showing patchy airspace disease in RLL may represent atalectasis vs pneumonia Endo: - Maintain euvolemia, euglycemia GI ppx: Pepcid DVT ppx: Lovenox Case and plan was reviewed and discussed in detail with Dr Toribio. <Mahin Figueredo - Last Filed: 11/23/17 14:43> CCU Objective - Vital Signs / Intake & Output Vital Signs (Last 4 hours): Vital Signs Pulse 11/23/17 12:33 123 H Intake and Output (Last 8hrs): Intake & Output 11/22/17 11/23/17 11/23/17 22:59 06:59 14:59 Intake Total 35 Balance 35 Weight 179 lb Intake: IV 35 Other: Voiding Method Toilet - Medications Active Medications: Active Medications Generic Name Dose Route Start Last Admin Trade Name Freq PRN Reason Stop Dose Admin Budesonide 0.5 mg 11/23/17 20:00 Pulmicort Respules IH [id number] YASMEEN Enoxaparin Sodium 80 mg 11/23/17 12:00 11/23/17 12:34 Lovenox SC 80 mg Q12 YASMEEN Administration Protocol Famotidine 20 mg 11/23/17 10:00 11/23/17 09:04 Pepcid PO 20 mg BID YASMEEN Administration Ceftriaxone Sodium 1 gm in 100 mls @ 100 mls/hr 11/23/17 12:45 11/23/17 14:11 Rocephin 1 Gram Ivpb IVPB 100 mls/hr DAILY YASMEEN Administration Protocol Azithromycin 500 mg in 250 mls @ 167 mls/hr 11/23/17 12:45 11/23/17 14:18 Zithromax 500mg In Ns IVPB 167 mls/hr DAILY YASMEEN Administration Protocol Ipratropium [place] 0.5 mg 11/23/17 14:00 11/23/17 13:18 Atrovent IH Not Given [id number] YASMEEN Levalbuterol HCl 0.63 mg 11/23/17 13:48 Xopenex IH Q2H PRN Shortness of Breath Methimazole 5 mg 11/23/17 18:00 Tapazole PO BID YASMEEN Methylprednisolone 20 mg 11/23/17 12:45 11/23/17 14:17 Solu-Medrol IVP 20 mg Q12 YASMEEN Administration Metoprolol Tartrate 50 mg 11/23/17 14:17 Lopressor PO Q6 YASMEEN - Patient Studies Lab Studies: Lab Studies 11/23/17 11/23/17 11/23/17 Range/Units 14:05 08:30 07:33 WBC (4.5-11.0) 10^3/ul RBC (3.5-6.1) 10^6/uL Hgb (12.0-16.0) g/dL Hct (36.0-48.0) % MCV (80.0-105.0) fl MCH (25.0-35.0) pg MCHC (31.0-37.0) g/dl RDW (11.5-14.5) % Plt Count (120.0-450.0) 10^3/uL MPV (7.0-11.0) fl Gran % (50.0-68.0) % Lymph % (Auto) (22.0-35.0) % [place] % (Auto) (1.0-6.0) % Eos % (Auto) (1.5-5.0) % Baso % (Auto) (0.0-3.0) % Gran # (1.4-6.5) Lymph # (Auto) (1.2-3.4) [place] # (Auto) (0.1-0.6) Eos # (Auto) (0.0-0.7) Baso # (Auto) (0.0-2.0) K/mm3 pCO2 37 (35-45) mm/Hg pO2 76.0 L (80-100) mm/Hg HCO3 22.4 (21-28) mmol/L ABG pH 7.39 (7.35-7.45) ABG Total CO2 23.5 (22-28) mmol.L ABG O2 Saturation 97.6 (95-98) % ABG Base Excess -2.2 L (-2.0-3.0) mmol/L ABG Potassium 4.1 (3.6-5.2) mmol/L Glucose 105 (65-105) mg/dl Lactate 0.8 (0.7-2.1) mmol/L FiO2 36.0 % Sodium 140.0 (132-148) mmol/L Potassium (3.6-5.0) mmol/L Chloride 110.0 H (98-107) mmol/L Carbon Dioxide (21-33) mmol/L Anion Gap (10-20) BUN (7-21) mg/dL Creatinine (0.7-1.2) mg/dl Est GFR ( Amer) Est GFR (Non-Af Amer) Random Glucose (70-110) mg/dL Calcium (8.4-10.5) mg/dL Total Bilirubin (0.2-1.3) mg/dL AST (14-36) U/L ALT (7-56) U/L Alkaline Phosphatase (38-126) U/L Lactate Dehydrogenase (333-699) U/L Total Creatine Kinase (35-230) U/L Troponin I ng/mL Total Protein (5.8-8.3) g/dL Albumin (3.0-4.8) g/dL Globulin gm/dL Albumin/Globulin Ratio (1.1-1.8) Free T4 1.31 (0.78-2.19) ng/dL Thyroxine (T4) 10.0 (5.5-11.0) ug/dL Free T3 pg/mL 3.99 (2.77-5.27) pg/mL Total T3 1.25 (0.97-1.69) ng/mL TSH 3rd Generation 0.58 (0.46-4.68) mIU/mL Arterial Blood Potassium 4.1 (3.6-5.2) mmol/L 04/10/18 04/10/18 04/09/18 Range/Units 05:50 05:50 23:25 WBC 7.3 (4.5-11.0) 10^3/ul RBC 4.45 (3.5-6.1) 10^6/uL Hgb 12.3 (12.0-16.0) g/dL Hct 38.3 (36.0-48.0) % MCV 86.1 (80.0-105.0) fl MCH 27.6 (25.0-35.0) pg MCHC 32.1 (31.0-37.0) g/dl RDW 14.5 (11.5-14.5) % Plt Count 252 (120.0-450.0) 10^3/uL MPV 10.1 (7.0-11.0) fl Gran % 48.7 L (50.0-68.0) % Lymph % (Auto) 42.2 H (22.0-35.0) % [place] % (Auto) 7.2 H (1.0-6.0) % Eos % (Auto) 1.8 (1.5-5.0) % Baso % (Auto) 0.1 (0.0-3.0) % Gran # 3.57 (1.4-6.5) Lymph # (Auto) 3.1 (1.2-3.4) [place] # (Auto) 0.5 (0.1-0.6) Eos # (Auto) 0.1 (0.0-0.7) Baso # (Auto) 0.01 (0.0-2.0) K/mm3 pCO2 (35-45) mm/Hg pO2 (80-100) mm/Hg HCO3 (21-28) mmol/L ABG pH (7.35-7.45) ABG Total CO2 (22-28) mmol.L ABG O2 Saturation (95-98) % ABG Base Excess (-2.0-3.0) mmol/L ABG Potassium (3.6-5.2) mmol/L Glucose (65-105) mg/dl Lactate (0.7-2.1) mmol/L FiO2 % Sodium 139 (132-148) mmol/L Potassium 4.2 (3.6-5.0) mmol/L Chloride 105 (98-107) mmol/L Carbon Dioxide 25 (21-33) mmol/L Anion Gap 13 (10-20) BUN 18 (7-21) mg/dL Creatinine 1.1 (0.7-1.2) mg/dl Est GFR ( Amer) 60 Est GFR (Non-Af Amer) 49 Random Glucose 88 (70-110) mg/dL Calcium 9.4 (8.4-10.5) mg/dL Total Bilirubin 0.2 (0.2-1.3) mg/dL AST 20 (14-36) U/L ALT 19 (7-56) U/L Alkaline Phosphatase 62 (38-126) U/L Lactate Dehydrogenase 419 348 (333-699) U/L Total Creatine Kinase 96 71 (35-230) U/L Troponin I < 0.01 < 0.01 ng/mL Total Protein 6.8 (5.8-8.3) g/dL Albumin 3.6 (3.0-4.8) g/dL Globulin 3.1 gm/dL Albumin/Globulin Ratio 1.2 (1.1-1.8) Free T4 (0.78-2.19) ng/dL Thyroxine (T4) (5.5-11.0) ug/dL Free T3 pg/mL (2.77-5.27) pg/mL Total T3 (0.97-1.69) ng/mL TSH 3rd Generation (0.46-4.68) mIU/mL Arterial Blood Potassium (3.6-5.2) mmol/L Laboratory Results - last 24 hr 11/22/17 11/23/17 11/23/17 23:25 05:50 05:50 WBC 7.3 RBC 4.45 Hgb 12.3 Hct 38.3 MCV 86.1 MCH 27.6 MCHC 32.1 RDW 14.5 Plt Count 252 MPV 10.1 Gran % 48.7 L Lymph % (Auto) 42.2 H [place] % (Auto) 7.2 H Eos % (Auto) 1.8 Baso % (Auto) 0.1 Gran # 3.57 Lymph # (Auto) 3.1 [place] # (Auto) 0.5 Eos # (Auto) 0.1 Baso # (Auto) 0.01 pCO2 pO2 HCO3 ABG pH ABG Total CO2 ABG O2 Saturation ABG Base Excess ABG Potassium Glucose Lactate FiO2 Sodium 139 Potassium 4.2 Chloride 105 Carbon Dioxide 25 Anion Gap 13 BUN 18 Creatinine 1.1 Est GFR ( Amer) 60 Est GFR (Non-Af Amer) 49 Random Glucose 88 Calcium 9.4 Total Bilirubin 0.2 AST 20 ALT 19 Alkaline Phosphatase 62 Lactate Dehydrogenase 348 419 Total Creatine Kinase 71 96 Troponin I < 0.01 < 0.01 Total Protein 6.8 Albumin 3.6 Globulin 3.1 Albumin/Globulin Ratio 1.2 Free T4 Thyroxine (T4) Free T3 pg/mL Total T3 TSH 3rd Generation Arterial Blood Potassium 11/23/17 11/23/17 11/23/17 07:33 08:30 14:05 WBC RBC Hgb Hct MCV MCH MCHC RDW Plt Count MPV Gran % Lymph % (Auto) [place] % (Auto) Eos % (Auto) Baso % (Auto) Gran # Lymph # (Auto) [place] # (Auto) Eos # (Auto) Baso # (Auto) pCO2 37 pO2 76.0 L HCO3 22.4 ABG pH 7.39 ABG Total CO2 23.5 ABG O2 Saturation 97.6 ABG Base Excess -2.2 L ABG Potassium 4.1 Glucose 105 Lactate 0.8 FiO2 36.0 Sodium 140.0 Potassium Chloride 110.0 H Carbon Dioxide Anion Gap BUN Creatinine Est GFR ( Amer) Est GFR (Non-Af Amer) Random Glucose Calcium Total Bilirubin AST ALT Alkaline Phosphatase Lactate Dehydrogenase Total Creatine Kinase Troponin I Total Protein Albumin Globulin Albumin/Globulin Ratio Free T4 1.31 Thyroxine (T4) 10.0 Free T3 pg/mL 3.99 Total T3 1.25 TSH 3rd Generation 0.58 Arterial Blood Potassium 4.1 EKG/Cardiology Studies: Cardiology / EKG Studies 11/23/17 07:13 EKG [ELECTROCARDIOGRAM] Stat Comment: Reason For Exam: a flutter new onset 11/23/17 18:19 EKG [ELECTROCARDIOGRAM] Stat Comment: Reason For Exam: CHEST PAIN Critical Care Progress Note - Nutrition Nutrition: Nutrition Category Date Time Status Heart Healthy Diet [DIET] Diets 11/22/17 Breakfast Ordered Attending/Attestation - Attestation I have personally seen and examined this patient.: Yes I have fully participated in the care of the patient.: Yes I have reviewed all pertinent clinical information: Yes Notes (Text): 11/23/17 14:[address] Figueredo's note
[2017-11-23] MEDS: Ipratropium 0.02% Inhal Soln (0.5 mg/2.5 ml) UD IH SCH ×3 (12:29→20:15)
[2017-11-23] MEDS: Enoxaparin 80 mg Syringe SC SCH ×2 (12:34→22:25)
--- NOTE | 2017-11-23 13:06 | CT ---
PROCEDURE: CT Chest with contrast (Pulmonary Angiogram) HISTORY: r/o PE COMPARISON: None available. TECHNIQUE: Axial computed tomography images were obtained of the chest in the pulmonary arterial phase of enhancement. Coronal and sagittal reformatted images were created and reviewed. Intravenous contrast dose: 100 mL Visipaque 320 Radiation dose: Total exam DLP = 562.82 mGy-cm. This CT exam was performed using one or more of the following dose reduction techniques: Automated exposure control, adjustment of the mA and/or kV according to patient size, and/or use of iterative reconstruction technique. FINDINGS: The thyroid gland is enlarged. The left thyroid lobe measures 5.3 x 3.6 x 6.5 cm and there is retrosternal extension with an apparent nodule in the lower pole. There is mild mass effect on the trachea without luminal narrowing. PULMONARY ARTERIES: There are no filling defects in the pulmonary arteries to suggest acute pulmonary embolism. AORTA: No acute findings. No thoracic aortic aneurysm. LUNGS: There is diffuse centrilobular emphysema with upper lobe predominance. There is consolidation in the anterior basal segment of the right lower lobe. There is a 10 mm nodule in the right lung base (series 5, image 87). There is bibasilar subsegmental atelectasis. PLEURAL SPACES: Small bilateral pleural effusions. No pneuomothorax. HEART: The heart is normal in size. No significant pericardial effusion. LYMPH NODES: There are enlarged mediastinal lymph nodes, the largest prevascular lymph node measures 1.4 cm in short axis. BONES, CHEST WALL: Diffuse bone demineralization. No fracture or destructive lesion OTHER FINDINGS: Thickening of both adrenal glands without discrete nodule. Mild splenomegaly. There is a large umbilical hernia containing nonobstructed small bowel loops and transverse colon. IMPRESSION: 1. No CT evidence for acute pulmonary embolism. 2. Consolidation in the anterior basal segment of the right lower lobe. Follow-up after medical management is recommended to ensure complete resolution. Enlarged mediastinal lymph nodes. 3. 10 mm nodule in the right lung base. Short-term interval follow-up in 3 months/correlation with PET-CT/ biopsy is recommended for further characterization. 4. Small bilateral pleural effusions. 5. Enlarged left thyroid lobe with retrosternal extension and mild mass effect on the trachea without luminal narrowing. Apparent nodule in the lower pole of the left thyroid lobe. A dedicated thyroid ultrasound is recommended for complete evaluation of the thyroid gland.
[2017-11-23] MEDS: cefTRIAXone 1 gm 1 GM/100 ML BAG IVPB SCH (14:11)
[2017-11-23 14:16] LABS: ARTERIAL BLOOD GAS HCO3 22.4 mmol/L (21-28); ARTERIAL BLOOD GAS O2 SAT 97.6 % (95-98); ARTERIAL BLOOD GAS PCO2 37 mm/Hg (35-45); ARTERIAL BLOOD GAS PH 7.39 (7.35-7.45); ARTERIAL BLOOD GAS TCO2 23.5 mmol.L (22-28)
[2017-11-23] MEDS: MethylPREDNISolone 40 mg Vial IVP SCH ×2 (14:17→22:26)
[2017-11-23] MEDS: Azithromycin 500MG/NS 250ml 500 MG/250 ML BAG IVPB SCH (14:18)
--- NOTE | 2017-11-23 14:29 | CARD ---
APPROVED REPORT EKG Measurement Heart [id number] <Conclusion> Atrial flutter with 2:1 AV conduction Right axis deviation Low voltage QRS Septal infarct, age undetermined ST & T wave abnormality, consider inferior ischemia Abnormal ECG
[2017-11-23 14:56] LABS: URINE BILIRUBIN NEGATIVE (NEGATIVE); URINE BLOOD NEGATIVE (NEGATIVE); URINE GLUCOSE (UA) NEGATIVE (NEGATIVE); URINE LEUKOCYTE ESTERASE NEGATIVE Leu/uL (NEGATIVE); URINE PROTEIN NEGATIVE mg/dL (<30 mg/dL); URINE UROBILINOGEN 0.2 E.U./dL (<1 E.U./dL)
[2017-11-23 15:04] LABS: URINE APPEARANCE CLEAR (CLEAR); URINE COLOR YELLOW (YELLOW)
--- NOTE | 2017-11-23 15:41 | US ---
HISTORY: Leg pain and swelling. Evaluate for DVT PHYSICIAN(S): Avery Zuniga MD. TECHNIQUE: Duplex sonography and color-flow Doppler with graded compression were used to evaluate the deep venous systems of both lower extremities. FINDINGS: The visualized deep venous systems of both lower extremities are sonographically normal and compressible. Normal wave forms and augmentation are seen. There is no sonographic evidence for deep venous thrombosis in the visualized segments of both lower extremities. IMPRESSION: No sonographic evidence for deep venous thrombosis in the visualized segments of both lower extremities.
[2017-11-23] MEDS: methIMAzole 5 MG TAB PO SCH (17:23)
[2017-11-23] MEDS: Budesonide 0.5 mg/2 ml Inhal Susp UD IH SCH (20:15)
[2017-11-23] MEDS: Levalbuterol 0.63 MG/3 ML Inhal Soln UD IH PRN (20:15)
--- NOTE | 2017-11-23 20:35 | CON ---
DATE: 11/23/2017 HISTORY OF PRESENT ILLNESS: This is a 67-year-old woman admitted to the hospital yesterday through the emergency room. She has a history of syncope last Wednesday, this was witnessed by her daughter. She fell to the floor, but did not suffer any injuries. She was seen in a walk-in center following the episode. She was referred to the hospital, but did not go. Yesterday, she went to Dr. Arceo's office and had a pulse of 140 and atrial flutter. She was sent to the emergency room. She was given IV Cardizem and then IV amiodarone. She is currently in the CCU with atrial flutter rate of about 120-130, on IV amiodarone drip. There is evidence of hyperthyroidism. There is no chest pain, shortness of breath, orthopnea, PND, palpitations, edema, claudication, vertigo, fever, chills, cough, sputum production, hemoptysis, abdominal pain, nausea, vomiting, diarrhea, constipation, melena. PAST MEDICAL HISTORY: Notable for hypertension. A chest x-ray shows possible pneumonia. She has a history of claustrophobia, cigarette smoking, remote pulmonary embolism, depression, gallbladder surgery and ventral hernia repair. There is no history of rheumatic fever, myocardial infarction, angina, previous arrhythmia, congestive heart failure, diabetes, stroke, TIA or gout. MEDICATIONS: At the time of admission included Celexa, Ventolin, Zestril. ALLERGIES: THERE ARE NO MEDICATION ALLERGIES. SOCIAL HISTORY: She is a cigarette smoker. She does not drink alcohol. She lives at home. She is ambulatory. FAMILY HISTORY: Noncontributory. REVIEW OF SYSTEMS: A 10-point review of systems is otherwise unremarkable except as noted above. PHYSICAL EXAMINATION GENERAL: She is a well-developed woman lying in bed in the CCU, in no acute distress. Her daughter is at the bedside. VITAL SIGNS: She is in atrial flutter, heart rate 120-140 beats per minute. She is afebrile. Blood pressure 108/58, respirations 20-25, and O2 sat 91%-99% on nasal cannula. HEENT: Reveals no neck vein distention, thyromegaly, carotid bruits. Mucous membranes moist. Conjunctivae are pink. NECK: Supple. LUNG: Lung [place], scattered rhonchi. HEART: Revealed normal first and second heart sounds. Soft systolic murmur along the left sternal border. ABDOMEN: Soft. Bowel sounds are present. No mass, organomegaly, tenderness, rebound, guarding. No CVA tenderness. No palpable abdominal aortic aneurysm. EXTREMITIES: Revealed no cyanosis, clubbing, or edema. NEUROLOGIC: Awake, alert, and oriented. PSYCHIATRIC: Normal as to mood and affect. SKIN: Warm and dry. No rash or cellulitis. LABORATORY AND IMAGING: A chest x-ray reveals patchy airspace disease in the right lower lobe, possible atelectasis or pneumonia. EKG demonstrates atrial flutter with rapid ventricular response, poor R-wave progression, nonspecific ST-wave changes. CBC is unremarkable. PT, INR, PTT are normal. Electrolytes, BUN, creatinine, blood sugar, LFTs all unremarkable. CK and troponins negative x3. BNP 777. Triglycerides 153, cholesterol 235, LDL 148, HDL 45, TSH is low at 0.3. IMPRESSION: Shannan Lewis is a 67-year-old woman who suffered a syncopal episode on Wednesday. On Wednesday, she is found to be in atrial flutter with rapid ventricular response. She was admitted to the CCU where she has been placed on IV Cardizem and then on IV amiodarone in the setting of hyperthyroidism with a low TSH level. PLAN: I have discussed the case with the hearing specialist. I will switch from amiodarone to a beta salbador and consider early cardioversion. I will keep her n.p.o. I will get an echocardiogram. She is being treated for hyperthyroidism by Dr. Arceo. He will start her on Tapazole. She got Lovenox. An echocardiogram is ordered. She will be at bedrest. She is in the CCU. I have discussed the case with Dr. Arceo. I will follow along with you and make additional recommendations based on her clinical course. Robin Kruger MD [email or web address]
[2017-11-24] MEDS: Ipratropium 0.02% Inhal Soln (0.5 mg/2.5 ml) UD IH SCH ×4 (01:15→20:18)
[2017-11-24 07:19] LABS: GRAN # 4.78 (1.4-6.5); GRAN % 82.4 % (50.0-68.0); HEMOGLOBIN 12.9 g/dL (12.0-16.0); LYMPH # 0.8 (1.2-3.4); LYMPH % 14.5 % (22.0-35.0); MEAN CELL VOLUME 86.9 fl (80.0-105.0); MEAN CORPUSCULAR HEMOGLOBIN 27.8 pg (25.0-35.0); MEAN PLATELET VOLUME 10.1 fl (7.0-11.0); MONO # 0.2 (0.1-0.6); MONO % 3.1 % (1.0-6.0); RBC 4.64 10^6/uL (3.5-6.1); RED CELL DISTRIBUTION WIDTH 14.3 % (11.5-14.5); WHITE BLOOD COUNT 5.8 10^3/ul (4.5-11.0)
[2017-11-24 07:20] LABS: T4 9.6 ug/dL (5.5-11.0)
[2017-11-24 07:22] LABS: ALB/GLOB RATIO 1.2 (1.1-1.8); ALBUMIN 3.6 g/dL (3.0-4.8); ALT/SGPT 41 U/L (7-56); AST/SGOT 24 U/L (14-36); BLOOD UREA NITROGEN 21 mg/dL (7-21); CALCIUM 9.4 mg/dL (8.4-10.5); GFR AFRICAN-AMERICAN > 60; GFR NON-AFRICAN AMERICAN 55
[2017-11-24] MEDS: Budesonide 0.5 mg/2 ml Inhal Susp UD IH SCH ×2 (08:08→20:18)
--- NOTE | 2017-11-24 08:56 | HP ---
HISTORY OF PRESENT ILLNESS: This is a 67-year-old female who is coming into the hospital after she had a syncopal episode a few days ago. The patient states that she was at home when she had a syncopal episode and had gone into an [facility]gent [facility] for evaluation. She then came to see me in the office yesterday stating that she had this episode. She denied any chest pain or shortness of breath, no headaches or dizziness. She states she did have dizziness when this initially happened, but since then, she has been feeling well. She has no abdominal pain or back pain. No dysuria or frequency. No nocturia. She does have a past medical history of hypertension. During my evaluation in the office, I did an EKG which showed that she was tachycardic in the 140s and she had atrial flutter, so she was sent into the ER for further evaluation. She has claustrophobia. All other review of symptoms are within normal limits except as mentioned. ALLERGIES: NO KNOWN DRUG ALLERGIES. HOME MEDICATIONS: Lisinopril, Celexa. SOCIAL HISTORY: She is a smoker, she smokes a pack a day. She denies drug use. She drinks socially. PAST MEDICAL HISTORY: Hypertension, PE, depression. PAST SURGICAL HISTORY: Ventral hernia repair, cholecystectomy. FAMILY HISTORY: Diabetes and hypertension. PHYSICAL EXAMINATION VITAL SIGNS: She has a temperature of 97.4, pulse in the 130s, blood pressure is 103/51, O2 saturation 95%. Height is 5 feet 1 inch. Weight is 179 pounds. BMI is 33.8. GENERAL: The patient lying in bed, uncomfortable, and in no acute distress. HEENT: Atraumatic and normocephalic. Anicteric sclerae. Moist mucosa. [place] conjunctivae. No oral lesions. NECK: No JVD, anterior and posterior adenopathy, thyromegaly, or bruits. CARDIOVASCULAR: S1 and S2, regular and tachycardic. No murmur, rubs, or gallop. LUNGS: Clear to auscultation bilaterally. No wheezes, rales, or rhonchi. ABDOMEN: Bowel sounds are positive. Soft, nontender and nondistended. No hepatosplenomegaly. No rebound and no guarding EXTREMITIES: No cyanosis, clubbing, or edema. NEUROLOGIC: No facial asymmetry. Tongue is midline. No uvula deviation. Power is 5/5 upper extremity and lower extremity. Sensation intact in upper extremity and lower extremity. PSYCHIATRIC: She is awake, alert and oriented x3. No anxiety or depression. She has normal affect. GENITOURINARY: No CVA tenderness. VASCULAR: 2+ pulses in the carotid pulses and pedal pulses. SKIN: No erythema or nodules. SPINE: Shows normal curvature. LABORATORY DATA: White count of 7.8, hemoglobin 4.82. Chemistry shows a sodium 141, potassium 4.1, is 0.01. Her TSH is 0.3. Her LDH is 441, her LDL is 148. Repeat troponin is 0.01. Chest x-ray done shows patchy airspace disease in the right lower lobe, possible atelectasis. EKG shows heart rate of 144, shows atrial fibrillation, QTc is 520. ASSESSMENT 1. Atrial flutter/atrial fibrillation. 2. Hypothyroidism, new onset. 3. Hypertension. 4. Smoking. 5. Obese with body mass index of 33. 6. Syncope. PLAN: The patient has abnormal EKG, has a syncopal episode. She is tachycardic. She is going to be admitted to the hospital for further evaluation. The patient was given Cardizem and placed on Cardizem drip. She is going to be on Lovenox for anticoagulation. The patient is on Pepcid daily. She is going to be evaluated by Cardiology. The patient is on a heart-healthy diet. She is going to need an echocardiogram done. Because of the abnormal TSH, I will place the patient on methimazole. We will await further input from Cardiology. She is currently in the ICU because she is on a Cardizem drip. Abdiaziz Arceo MD
--- NOTE | 2017-11-24 09:01 | PN ---
DATE: 11/24/2017 SUBJECTIVE: The patient has no complaints of any chest pain. No shortness of breath. No headaches. PHYSICAL EXAMINATION: VITAL SIGNS: Temperature is 98, pulse of 126, blood pressure is 112/58, respiration is 21. GENERAL: The patient is lying in bed, flat, comfortable. HEENT: No oral lesion. Anicteric sclerae. Moist mucosa. NECK: No JVD, adenopathy, or thyromegaly. CARDIOVASCULAR: S1 and S2, regular. No murmurs, rubs, or gallops. LUNGS: Clear to auscultation bilaterally. No wheeze, rales, or rhonchi. ABDOMEN: Bowel sounds are positive, soft, nontender and nondistended. EXTREMITIES: No cyanosis, clubbing or edema. LABORATORY DATA: White count of 5.8, hemoglobin 12.9. Creatinine is 1. ASSESSMENT: 1. Atrial fibrillation. 2. Enlarged mediastinal lymph nodes. 3. Enlarged left thyroid lobe with nodule. 4. Dyslipidemia. 5. Hypertension. 6. Anxiety. PLAN: The patient is currently comfortable. She continues to have a rapid heart rate. The H and P was done yesterday, but has not been placed in the computer yet. The patient is on Pepcid. She is going to continue with Tapazole. She is on Xopenex. The patient has an abnormal CAT scan of the neck. I will order a thyroid ultrasound. The patient is scheduled for a cardioversion today. I did speak to the patient's daughter at the bedside to give an update on the patient's diagnosis and plan of care. Abdiaziz Arceo MD
--- NOTE | 2017-11-24 09:08 | CP.CCUPN ---
<Sidney Manning - Last Filed: 11/24/17 11:03> CCU Subjective - Physician Review Subjective (Free Text): Critical Care progress note: Pt seen and examined at bedside. No acute events overnight. Pt was NPO for cardioversion today. No chest pain or sob at this time. No complaints. 12 Point ROS performed and neg other than stated above. 11/24/17 09:07 11/24/17 11:02 CCU Objective - Vital Signs / Intake & Output Vital Signs (Last 4 hours): Vital Signs Pulse Resp BP Pulse Ox 11/24/17 08:00 126 H 21 112/58 L 94 L 11/24/17 07:50 126 H 23 95 11/24/17 07:40 113 H 21 94 L 11/24/17 07:30 126 H 25 H 95 11/24/17 07:20 126 H 48 H 95 11/24/17 07:10 126 H 26 H 95 11/24/17 07:00 125 H 19 120/85 95 11/24/17 06:50 124 H 17 96 11/24/17 06:40 124 H 25 H 90 L 11/24/17 06:30 124 H 24 91 L 11/24/17 06:20 125 H 19 96 11/24/17 06:10 124 H 19 96 11/24/17 06:00 124 H 20 98/50 L 96 11/24/17 05:50 124 H 21 96 11/24/17 05:40 122 H 17 96 11/24/17 05:36 123 H 100/53 L 11/24/17 05:30 123 H 17 97 11/24/17 05:20 80 19 96 11/24/17 05:10 122 H 20 97 Intake and Output (Last 8hrs): Intake & Output 11/23/17 11/24/17 11/24/17 22:59 06:59 14:59 Intake Total 910 120 Output Total 600 Balance 310 120 Intake: IV 550 120 Left Forearm 550 120 Oral 360 Output: Urine 600 Urine, Voided 600 Other: # Bowel Movements 1 - Physical Exam Head: Positive for: Atraumatic, Normocephalic Pupils: Positive for: PERRL Extroacular Muscles: Positive for: EOMI Conjunctiva: Positive for: Normal Mouth: Positive for: Moist Mucous Membranes Neck: Positive for: Normal Range of Motion Respiratory/Chest: Positive for: Good Air Exchange, Wheezes. Negative for: Respiratory Distress, Accessory Muscle Use Cardiovascular: Positive for: Regular Rate and Rhythm, Normal S1, S2. Negative for: Murmurs Abdomen: Negative for: Tenderness, Distention, Peritoneal Signs Back: Positive for: Normal Inspection Upper Extremity: Positive for: Normal Inspection. Negative for: Cyanosis, Edema Lower Extremity: Positive for: Normal Inspection. Negative for: Edema Neurological: Positive for: GCS=15, CN II-XII Intact, Speech Normal Skin: Positive for: Warm, Dry, Normal Color. Negative for: Rashes Psychiatric: Positive for: Alert, Oriented x 3, Normal Insight, Normal Concentration - Medications Active Medications: Active Medications Generic Name Dose Route Start Last Admin Trade Name Freq PRN Reason Stop Dose Admin Budesonide 0.5 mg 11/23/17 20:00 11/24/17 08:08 Pulmicort Respules IH 0.5 mg [id number] YASMEEN Administration Enoxaparin Sodium 80 mg 11/23/17 12:00 11/23/17 22:25 Lovenox SC 80 mg Q12 YASMEEN Administration Protocol Famotidine 20 mg 11/23/17 10:00 11/23/17 17:23 Pepcid PO 20 mg BID YASMEEN Administration Ceftriaxone Sodium 1 gm in 100 mls @ 100 mls/hr 11/23/17 12:45 11/23/17 14:11 Rocephin 1 Gram Ivpb IVPB 100 mls/hr DAILY YASMEEN Administration Protocol Azithromycin 500 mg in 250 mls @ 167 mls/hr 11/23/17 12:45 11/23/17 14:18 Zithromax 500mg In Ns IVPB 167 mls/hr DAILY YASMEEN Administration Protocol Ipratropium [place] 0.5 mg 11/23/17 14:00 11/24/17 08:08 Atrovent IH 0.5 mg [id number] YASMEEN Administration Levalbuterol HCl 0.63 mg 11/23/17 13:48 11/23/17 20:15 Xopenex IH 0.63 mg Q2H PRN Administration Shortness of Breath Methimazole 5 mg 11/23/17 18:00 11/23/17 17:23 Tapazole PO 5 mg BID YASMEEN Administration Methylprednisolone 20 mg 11/23/17 12:45 11/23/17 22:26 Solu-Medrol IVP 20 mg Q12 YASMEEN Administration Metoprolol Tartrate 50 mg 11/23/17 14:17 11/24/17 05:36 Lopressor PO 50 mg Q6 YASMEEN Administration - Patient Studies Lab Studies: Lab Studies 11/24/17 11/24/17 11/24/17 Range/Units 05:30 05:00 05:00 WBC 5.8 D (4.5-11.0) 10^3/ul RBC 4.64 (3.5-6.1) 10^6/uL Hgb 12.9 (12.0-16.0) g/dL Hct 40.3 (36.0-48.0) % MCV 86.9 (80.0-105.0) fl MCH 27.8 (25.0-35.0) pg MCHC 32.0 (31.0-37.0) g/dl RDW 14.3 (11.5-14.5) % Plt Count 249 (120.0-450.0) 10^3/uL MPV 10.1 (7.0-11.0) fl Gran % 82.4 H (50.0-68.0) % Lymph % (Auto) 14.5 L (22.0-35.0) % [place] % (Auto) 3.1 (1.0-6.0) % Eos % (Auto) 0.0 L (1.5-5.0) % Baso % (Auto) 0.0 (0.0-3.0) % Gran # 4.78 (1.4-6.5) Lymph # (Auto) 0.8 L (1.2-3.4) [place] # (Auto) 0.2 (0.1-0.6) Eos # (Auto) 0.0 (0.0-0.7) Baso # (Auto) 0.00 (0.0-2.0) K/mm3 pCO2 (35-45) mm/Hg pO2 (80-100) mm/Hg HCO3 (21-28) mmol/L ABG pH (7.35-7.45) ABG Total CO2 (22-28) mmol.L ABG O2 Saturation (95-98) % ABG Base Excess (-2.0-3.0) mmol/L ABG Potassium (3.6-5.2) mmol/L Sodium 141 (132-148) mmol/L Chloride 109 H (98-107) mmol/L Glucose (65-105) mg/dl Lactate (0.7-2.1) mmol/L FiO2 % Potassium 4.8 (3.6-5.0) mmol/L Carbon Dioxide 22 (21-33) mmol/L Anion Gap 14 (10-20) BUN 21 (7-21) mg/dL Creatinine 1.0 (0.7-1.2) mg/dl Est GFR ( Amer) > 60 Est GFR (Non-Af Amer) 55 Random Glucose 126 H (70-110) mg/dL Calcium 9.4 (8.4-10.5) mg/dL Total Bilirubin 0.2 (0.2-1.3) mg/dL AST 24 (14-36) U/L ALT 41 (7-56) U/L Alkaline Phosphatase 60 (38-126) U/L Total Protein 6.8 (5.8-8.3) g/dL Albumin 3.6 (3.0-4.8) g/dL Globulin 3.1 gm/dL Albumin/Globulin Ratio 1.2 (1.1-1.8) Procalcitonin (0.19-0.49) NG/ML Free T4 (0.78-2.19) ng/dL Thyroxine (T4) 9.6 (5.5-11.0) ug/dL Free T3 pg/mL (2.77-5.27) pg/mL Total T3 (0.97-1.69) ng/mL TSH 3rd Generation 0.19 L (0.46-4.68) mIU/mL Arterial Blood Potassium (3.6-5.2) mmol/L Urine Color (YELLOW) Urine Appearance (CLEAR) Urine pH (4.7-8.0) Ur Specific [place] (1.005-1.035) Urine Protein (<30 mg/dL) mg/dL Urine Glucose (UA) (NEGATIVE) mg/dL Urine Ketones (NEGATIVE) mg/dL Urine Blood (NEGATIVE) Urine Nitrate (NEGATIVE) Urine Bilirubin (NEGATIVE) Urine Urobilinogen (<1 E.U./dL) E.U./dL Ur Leukocyte Esterase (NEGATIVE) Xavi/uL 11/23/17 11/23/17 11/23/17 Range/Units 15:00 14:05 12:45 WBC (4.5-11.0) 10^3/ul RBC (3.5-6.1) 10^6/uL Hgb (12.0-16.0) g/dL Hct (36.0-48.0) % MCV (80.0-105.0) fl MCH (25.0-35.0) pg MCHC (31.0-37.0) g/dl RDW (11.5-14.5) % Plt Count (120.0-450.0) 10^3/uL MPV (7.0-11.0) fl Gran % (50.0-68.0) % Lymph % (Auto) (22.0-35.0) % [place] % (Auto) (1.0-6.0) % Eos % (Auto) (1.5-5.0) % Baso % (Auto) (0.0-3.0) % Gran # (1.4-6.5) Lymph # (Auto) (1.2-3.4) [place] # (Auto) (0.1-0.6) Eos # (Auto) (0.0-0.7) Baso # (Auto) (0.0-2.0) K/mm3 pCO2 37 (35-45) mm/Hg pO2 76.0 L (80-100) mm/Hg HCO3 22.4 (21-28) mmol/L ABG pH 7.39 (7.35-7.45) ABG Total CO2 23.5 (22-28) mmol.L ABG O2 Saturation 97.6 (95-98) % ABG Base Excess -2.2 L (-2.0-3.0) mmol/L ABG Potassium 4.1 (3.6-5.2) mmol/L Sodium 140.0 (132-148) mmol/L Chloride 110.0 H (98-107) mmol/L Glucose 105 (65-105) mg/dl Lactate 0.8 (0.7-2.1) mmol/L FiO2 36.0 % Potassium (3.6-5.0) mmol/L Carbon Dioxide (21-33) mmol/L Anion Gap (10-20) BUN (7-21) mg/dL Creatinine (0.7-1.2) mg/dl Est GFR ( Amer) Est GFR (Non-Af Amer) Random Glucose (70-110) mg/dL Calcium (8.4-10.5) mg/dL Total Bilirubin (0.2-1.3) mg/dL AST (14-36) U/L ALT (7-56) U/L Alkaline Phosphatase (38-126) U/L Total Protein (5.8-8.3) g/dL Albumin (3.0-4.8) g/dL Globulin gm/dL Albumin/Globulin Ratio (1.1-1.8) Procalcitonin < 0.05 L (0.19-0.49) NG/ML Free T4 (0.78-2.19) ng/dL Thyroxine (T4) (5.5-11.0) ug/dL Free T3 pg/mL (2.77-5.27) pg/mL Total T3 (0.97-1.69) ng/mL TSH 3rd Generation (0.46-4.68) mIU/mL Arterial Blood Potassium 4.1 (3.6-5.2) mmol/L Urine Color Yellow (YELLOW) Urine Appearance Clear (CLEAR) Urine pH 6.0 (4.7-8.0) Ur Specific [place] 1.020 (1.005-1.035) Urine Protein Negative (<30 mg/dL) mg/dL Urine Glucose (UA) Negative (NEGATIVE) mg/dL Urine Ketones Negative (NEGATIVE) mg/dL Urine Blood Negative (NEGATIVE) Urine Nitrate Negative (NEGATIVE) Urine Bilirubin Negative (NEGATIVE) Urine Urobilinogen 0.2 (<1 E.U./dL) E.U./dL Ur Leukocyte Esterase Negative (NEGATIVE) Xavi/uL 11/23/17 11/23/17 Range/Units 08:30 07:33 WBC (4.5-11.0) 10^3/ul RBC (3.5-6.1) 10^6/uL Hgb (12.0-16.0) g/dL Hct (36.0-48.0) % MCV (80.0-105.0) fl MCH (25.0-35.0) pg MCHC (31.0-37.0) g/dl RDW (11.5-14.5) % Plt Count (120.0-450.0) 10^3/uL MPV (7.0-11.0) fl Gran % (50.0-68.0) % Lymph % (Auto) (22.0-35.0) % [place] % (Auto) (1.0-6.0) % Eos % (Auto) (1.5-5.0) % Baso % (Auto) (0.0-3.0) % Gran # (1.4-6.5) Lymph # (Auto) (1.2-3.4) [place] # (Auto) (0.1-0.6) Eos # (Auto) (0.0-0.7) Baso # (Auto) (0.0-2.0) K/mm3 pCO2 (35-45) mm/Hg pO2 (80-100) mm/Hg HCO3 (21-28) mmol/L ABG pH (7.35-7.45) ABG Total CO2 (22-28) mmol.L ABG O2 Saturation (95-98) % ABG Base Excess (-2.0-3.0) mmol/L ABG Potassium (3.6-5.2) mmol/L Sodium (132-148) mmol/L Chloride (98-107) mmol/L Glucose (65-105) mg/dl Lactate (0.7-2.1) mmol/L FiO2 % Potassium (3.6-5.0) mmol/L Carbon Dioxide (21-33) mmol/L Anion Gap (10-20) BUN (7-21) mg/dL Creatinine (0.7-1.2) mg/dl Est GFR ( Amer) Est GFR (Non-Af Amer) Random Glucose (70-110) mg/dL Calcium (8.4-10.5) mg/dL Total Bilirubin (0.2-1.3) mg/dL AST (14-36) U/L ALT (7-56) U/L Alkaline Phosphatase (38-126) U/L Total Protein (5.8-8.3) g/dL Albumin (3.0-4.8) g/dL Globulin gm/dL Albumin/Globulin Ratio (1.1-1.8) Procalcitonin (0.19-0.49) NG/ML Free T4 1.31 (0.78-2.19) ng/dL Thyroxine (T4) 10.0 (5.5-11.0) ug/dL Free T3 pg/mL 3.99 (2.77-5.27) pg/mL Total T3 1.25 (0.97-1.69) ng/mL TSH 3rd Generation 0.58 (0.46-4.68) mIU/mL Arterial Blood Potassium (3.6-5.2) mmol/L Urine Color (YELLOW) Urine Appearance (CLEAR) Urine pH (4.7-8.0) Ur Specific [place] (1.005-1.035) Urine Protein (<30 mg/dL) mg/dL Urine Glucose (UA) (NEGATIVE) mg/dL Urine Ketones (NEGATIVE) mg/dL Urine Blood (NEGATIVE) Urine Nitrate (NEGATIVE) Urine Bilirubin (NEGATIVE) Urine Urobilinogen (<1 E.U./dL) E.U./dL Ur Leukocyte Esterase (NEGATIVE) Xavi/uL Laboratory Results - last 24 hr 11/23/17 11/23/17 11/23/17 07:33 08:30 12:45 WBC RBC Hgb Hct MCV MCH MCHC RDW Plt Count MPV Gran % Lymph % (Auto) [place] % (Auto) Eos % (Auto) Baso % (Auto) Gran # Lymph # (Auto) [place] # (Auto) Eos # (Auto) Baso # (Auto) pCO2 pO2 HCO3 ABG pH ABG Total CO2 ABG O2 Saturation ABG Base Excess ABG Potassium Sodium Chloride Glucose Lactate FiO2 Potassium Carbon Dioxide Anion Gap BUN Creatinine Est GFR ( Amer) Est GFR (Non-Af Amer) Random Glucose Calcium Total Bilirubin AST ALT Alkaline Phosphatase Total Protein Albumin Globulin Albumin/Globulin Ratio Procalcitonin < 0.05 L Free T4 1.31 Thyroxine (T4) 10.0 Free T3 pg/mL 3.99 Total T3 1.25 TSH 3rd Generation 0.58 Arterial Blood Potassium Urine Color Urine Appearance Urine pH Ur Specific [place] Urine Protein Urine Glucose (UA) Urine Ketones Urine Blood Urine Nitrate Urine Bilirubin Urine Urobilinogen Ur Leukocyte Esterase 11/23/17 11/23/17 11/24/17 14:05 15:00 05:00 WBC RBC Hgb Hct MCV MCH MCHC RDW Plt Count MPV Gran % Lymph % (Auto) [place] % (Auto) Eos % (Auto) Baso % (Auto) Gran # Lymph # (Auto) [place] # (Auto) Eos # (Auto) Baso # (Auto) pCO2 37 pO2 76.0 L HCO3 22.4 ABG pH 7.39 ABG Total CO2 23.5 ABG O2 Saturation 97.6 ABG Base Excess -2.2 L ABG Potassium 4.1 Sodium 140.0 141 Chloride 110.0 H 109 H Glucose 105 Lactate 0.8 FiO2 36.0 Potassium 4.8 Carbon Dioxide 22 Anion Gap 14 BUN 21 Creatinine 1.0 Est GFR ( Amer) > 60 Est GFR (Non-Af Amer) 55 Random Glucose 126 H Calcium 9.4 Total Bilirubin 0.2 AST 24 ALT 41 Alkaline Phosphatase 60 Total Protein 6.8 Albumin 3.6 Globulin 3.1 Albumin/Globulin Ratio 1.2 Procalcitonin Free T4 Thyroxine (T4) Free T3 pg/mL Total T3 TSH 3rd Generation Arterial Blood Potassium 4.1 Urine Color Yellow Urine Appearance Clear Urine pH 6.0 Ur Specific [place] 1.020 Urine Protein Negative Urine Glucose (UA) Negative Urine Ketones Negative Urine Blood Negative Urine Nitrate Negative Urine Bilirubin Negative Urine Urobilinogen 0.2 Ur Leukocyte Esterase Negative 11/24/17 11/24/17 05:00 05:30 WBC 5.8 D RBC 4.64 Hgb 12.9 Hct 40.3 MCV 86.9 MCH 27.8 MCHC 32.0 RDW 14.3 Plt Count 249 MPV 10.1 Gran % 82.4 H Lymph % (Auto) 14.5 L [place] % (Auto) 3.1 Eos % (Auto) 0.0 L Baso % (Auto) 0.0 Gran # 4.78 Lymph # (Auto) 0.8 L [place] # (Auto) 0.2 Eos # (Auto) 0.0 Baso # (Auto) 0.00 pCO2 pO2 HCO3 ABG pH ABG Total CO2 ABG O2 Saturation ABG Base Excess ABG Potassium Sodium Chloride Glucose Lactate FiO2 Potassium Carbon Dioxide Anion Gap BUN Creatinine Est GFR ( Amer) Est GFR (Non-Af Amer) Random Glucose Calcium Total Bilirubin AST ALT Alkaline Phosphatase Total Protein Albumin Globulin Albumin/Globulin Ratio Procalcitonin Free T4 Thyroxine (T4) 9.6 Free T3 pg/mL Total T3 TSH 3rd Generation 0.19 L Arterial Blood Potassium Urine Color Urine Appearance Urine pH Ur Specific [place] Urine Protein Urine Glucose (UA) Urine Ketones Urine Blood Urine Nitrate Urine Bilirubin Urine Urobilinogen Ur Leukocyte Esterase EKG/Cardiology Studies: Cardiology / EKG Studies 11/23/17 18:19 EKG [ELECTROCARDIOGRAM] Stat Comment: Reason For Exam: CHEST PAIN Fingerstick Blood Sugar Results: 91 Review of Systems - Review of Systems All systems: reviewed and no additional remarkable complaints except (HPI) Critical Care Progress Note - Nutrition Nutrition: Nutrition Category Date Time Status Heart Healthy Diet [DIET] Diets 11/22/17 Breakfast Ordered Assessment/Plan - Assessment and Plan (Free Text) Assessment: 67yo female with PMHx of HTN, PE (30yrs ago), depression and tobacco abuse presents with atrial flutter. Patient s/p cardioversion and converted to NSR. Neurology: - AAO x 3 CV: - Hemodynamically stable - A.flutter on EKG 2:1 conduction - Amiodarone drip d/colleen - Started on Lopressor 50mg PO BID - Cardio consulted- Dr. Interiano - D/c lovenox, and start Eliquis and decrease lopressor to 50mg BID - Troponin x 3 neg - Therapeutic Lovenox - Serial EKG - Echo - EF of 41 % LV difficult to asses due to A flutter, moderate TR - CT chest with PE protocol - neg - Ext US - neg for DVTs Pulm: - Maintain spO2>90% - Aspiration precaution - Duoneb prn - Atrovent and Pulmicort for wheezing - Solumedrol 20mg q12 GI: - Pepcid for ppx - Heart healthy diet Heme: - H/H stable no overt signs of bleeding Nephro: - Monitor electrolytes and replace as needed ID: - No leukocytosis, afebrile - CXR showing patchy airspace disease in RLL may represent atalectasis vs pneumonia - D/colleen Rocephin and Azithro Endo: - Maintain euvolemia, euglycemia - TSH low normal 0.3 --> .58 - Endo consulted for recs - Started methimazole - F/u Thyroid US (due to abnormal CT chest) GI ppx: Pepcid DVT ppx: Lovenox Case and plan was reviewed and discussed with Dr Toribio. <Mahin Figueredo - Last Filed: 11/24/17 14:30> CCU Objective - Vital Signs / Intake & Output Vital Signs (Last 4 hours): Vital Signs Temp Pulse Resp BP Pulse Ox 11/24/17 12:25 68 102/65 94 L 11/24/17 12:20 64 6 L 108/72 94 L 11/24/17 12:15 101 H 109/60 93 L 11/24/17 12:10 76 24 116/70 88 L 11/24/17 12:05 68 123/68 93 L 11/24/17 12:00 64 18 121/59 L 93 L 11/24/17 11:55 69 111/58 L 93 L 11/24/17 11:51 70 14 131/69 93 L 11/24/17 11:50 74 13 94 L 11/24/17 11:45 67 21 111/77 92 L 11/24/17 11:40 69 26 H 130/76 91 L 11/24/17 11:35 76 21 116/59 L 72 L 11/24/17 11:30 69 17 110/67 92 L 11/24/17 11:25 69 18 124/71 92 L 11/24/17 11:20 71 22 115/75 94 L 11/24/17 11:15 112/70 99 11/24/17 11:10 60 22 122/80 98 11/24/17 11:06 73 21 106/79 98 11/24/17 11:00 65 17 123/68 97 11/24/17 10:55 67 17 117/68 98 11/24/17 10:50 66 19 126/70 97 11/24/17 10:48 98.0 F 65 18 112/62 94 L 11/24/17 10:45 66 18 109/59 L 96 11/24/17 10:40 72 20 116/63 97 11/24/17 10:35 63 19 105/59 L 96 11/24/17 10:30 65 18 106/63 96 11/24/17 10:25 100/65 Intake and Output (Last 8hrs): Intake & Output 11/23/17 11/24/17 11/24/17 22:59 06:59 14:59 Intake Total 910 120 100 Output Total 600 Balance 310 120 100 Intake: IV 550 120 100 Left Forearm 550 120 Oral 360 Output: Urine 600 Urine, Voided 600 Other: # Bowel Movements 1 - Medications Active Medications: Active Medications Generic Name Dose Route Start Last Admin Trade Name Freq PRN Reason Stop Dose Admin Apixaban 5 mg 11/24/17 11:00 11/24/17 12:25 Eliquis PO 5 mg BID YASMEEN Administration Protocol Budesonide 0.5 mg 11/23/17 20:00 11/24/17 08:08 Pulmicort Respules IH 0.5 mg [id number] YASMEEN Administration Famotidine 20 mg 11/23/17 10:00 11/24/17 12:24 Pepcid PO 20 mg BID YASMEEN Administration Ipratropium [place] 0.5 mg 11/23/17 14:00 11/24/17 13:15 Atrovent IH 0.5 mg [id number] YASMEEN Administration Levalbuterol HCl 0.63 mg 11/23/17 13:48 11/23/17 20:15 Xopenex IH 0.63 mg Q2H PRN Administration Shortness of Breath Methimazole 5 mg 11/23/17 18:00 11/24/17 12:25 Tapazole PO 5 mg BID YASMEEN Administration Methylprednisolone 20 mg 11/23/17 12:45 11/24/17 12:25 Solu-Medrol IVP 20 mg Q12 YASMEEN Administration Metoprolol Tartrate 50 mg 11/24/17 18:00 Lopressor PO BID [facility] - Patient Studies Lab Studies: Microbiology Studies 11/23/17 13:00 Blood Culture - Preliminary Blood NO GROWTH AFTER 24 HOURS 11/23/17 12:45 Blood Culture - Preliminary Blood NO GROWTH AFTER 24 HOURS 11/23/17 00:00 MRSA Culture (Admit) - Final Naris MRSA NOT DETECTED Lab Studies 11/24/17 11/24/17 11/24/17 Range/Units 05:30 05:00 05:00 WBC 5.8 D (4.5-11.0) 10^3/ul RBC 4.64 (3.5-6.1) 10^6/uL Hgb 12.9 (12.0-16.0) g/dL Hct 40.3 (36.0-48.0) % MCV 86.9 (80.0-105.0) fl MCH 27.8 (25.0-35.0) pg MCHC 32.0 (31.0-37.0) g/dl RDW 14.3 (11.5-14.5) % Plt Count 249 (120.0-450.0) 10^3/uL MPV 10.1 (7.0-11.0) fl Gran % 82.4 H (50.0-68.0) % Lymph % (Auto) 14.5 L (22.0-35.0) % [place] % (Auto) 3.1 (1.0-6.0) % Eos % (Auto) 0.0 L (1.5-5.0) % Baso % (Auto) 0.0 (0.0-3.0) % Gran # 4.78 (1.4-6.5) Lymph # (Auto) 0.8 L (1.2-3.4) [place] # (Auto) 0.2 (0.1-0.6) Eos # (Auto) 0.0 (0.0-0.7) Baso # (Auto) 0.00 (0.0-2.0) K/mm3 pCO2 (35-45) mm/Hg pO2 (80-100) mm/Hg HCO3 (21-28) mmol/L ABG pH (7.35-7.45) ABG Total CO2 (22-28) mmol.L ABG O2 Saturation (95-98) % ABG Base Excess (-2.0-3.0) mmol/L ABG Potassium (3.6-5.2) mmol/L Sodium 141 (132-148) mmol/L Chloride 109 H (98-107) mmol/L Glucose (65-105) mg/dl Lactate (0.7-2.1) mmol/L FiO2 % Potassium 4.8 (3.6-5.0) mmol/L Carbon Dioxide 22 (21-33) mmol/L Anion Gap 14 (10-20) BUN 21 (7-21) mg/dL Creatinine 1.0 (0.7-1.2) mg/dl Est GFR ( Amer) > 60 Est GFR (Non-Af Amer) 55 Random Glucose 126 H (70-110) mg/dL Calcium 9.4 (8.4-10.5) mg/dL Total Bilirubin 0.2 (0.2-1.3) mg/dL AST 24 (14-36) U/L ALT 41 (7-56) U/L Alkaline Phosphatase 60 (38-126) U/L Total Protein 6.8 (5.8-8.3) g/dL Albumin 3.6 (3.0-4.8) g/dL Globulin 3.1 gm/dL Albumin/Globulin Ratio 1.2 (1.1-1.8) Procalcitonin (0.19-0.49) NG/ML Thyroxine (T4) 9.6 (5.5-11.0) ug/dL TSH 3rd Generation 0.19 L (0.46-4.68) mIU/mL Arterial Blood Potassium (3.6-5.2) mmol/L Urine Color (YELLOW) Urine Appearance (CLEAR) Urine pH (4.7-8.0) Ur Specific [place] (1.005-1.035) Urine Protein (<30 mg/dL) mg/dL Urine Glucose (UA) (NEGATIVE) mg/dL Urine Ketones (NEGATIVE) mg/dL Urine Blood (NEGATIVE) Urine Nitrate (NEGATIVE) Urine Bilirubin (NEGATIVE) Urine Urobilinogen (<1 E.U./dL) E.U./dL Ur Leukocyte Esterase (NEGATIVE) Xavi/uL 11/23/17 11/23/17 11/23/17 Range/Units 15:00 14:05 12:45 WBC (4.5-11.0) 10^3/ul RBC (3.5-6.1) 10^6/uL Hgb (12.0-16.0) g/dL Hct (36.0-48.0) % MCV (80.0-105.0) fl MCH (25.0-35.0) pg MCHC (31.0-37.0) g/dl RDW (11.5-14.5) % Plt Count (120.0-450.0) 10^3/uL MPV (7.0-11.0) fl Gran % (50.0-68.0) % Lymph % (Auto) (22.0-35.0) % [place] % (Auto) (1.0-6.0) % Eos % (Auto) (1.5-5.0) % Baso % (Auto) (0.0-3.0) % Gran # (1.4-6.5) Lymph # (Auto) (1.2-3.4) [place] # (Auto) (0.1-0.6) Eos # (Auto) (0.0-0.7) Baso # (Auto) (0.0-2.0) K/mm3 pCO2 37 (35-45) mm/Hg pO2 76.0 L (80-100) mm/Hg HCO3 22.4 (21-28) mmol/L ABG pH 7.39 (7.35-7.45) ABG Total CO2 23.5 (22-28) mmol.L ABG O2 Saturation 97.6 (95-98) % ABG Base Excess -2.2 L (-2.0-3.0) mmol/L ABG Potassium 4.1 (3.6-5.2) mmol/L Sodium 140.0 (132-148) mmol/L Chloride 110.0 H (98-107) mmol/L Glucose 105 (65-105) mg/dl Lactate 0.8 (0.7-2.1) mmol/L FiO2 36.0 % Potassium (3.6-5.0) mmol/L Carbon Dioxide (21-33) mmol/L Anion Gap (10-20) BUN (7-21) mg/dL Creatinine (0.7-1.2) mg/dl Est GFR ( Amer) Est GFR (Non-Af Amer) Random Glucose (70-110) mg/dL Calcium (8.4-10.5) mg/dL Total Bilirubin (0.2-1.3) mg/dL AST (14-36) U/L ALT (7-56) U/L Alkaline Phosphatase (38-126) U/L Total Protein (5.8-8.3) g/dL Albumin (3.0-4.8) g/dL Globulin gm/dL Albumin/Globulin Ratio (1.1-1.8) Procalcitonin < 0.05 L (0.19-0.49) NG/ML Thyroxine (T4) (5.5-11.0) ug/dL TSH 3rd Generation (0.46-4.68) mIU/mL Arterial Blood Potassium 4.1 (3.6-5.2) mmol/L Urine Color Yellow (YELLOW) Urine Appearance Clear (CLEAR) Urine pH 6.0 (4.7-8.0) Ur Specific [place] 1.020 (1.005-1.035) Urine Protein Negative (<30 mg/dL) mg/dL Urine Glucose (UA) Negative (NEGATIVE) mg/dL Urine Ketones Negative (NEGATIVE) mg/dL Urine Blood Negative (NEGATIVE) Urine Nitrate Negative (NEGATIVE) Urine Bilirubin Negative (NEGATIVE) Urine Urobilinogen 0.2 (<1 E.U./dL) E.U./dL Ur Leukocyte Esterase Negative (NEGATIVE) Xavi/uL Laboratory Results - last 24 hr 11/23/17 11/23/17 11/23/17 12:45 14:05 15:00 WBC RBC Hgb Hct MCV MCH MCHC RDW Plt Count MPV Gran % Lymph % (Auto) [place] % (Auto) Eos % (Auto) Baso % (Auto) Gran # Lymph # (Auto) [place] # (Auto) Eos # (Auto) Baso # (Auto) pCO2 37 pO2 76.0 L HCO3 22.4 ABG pH 7.39 ABG Total CO2 23.5 ABG O2 Saturation 97.6 ABG Base Excess -2.2 L ABG Potassium 4.1 Sodium 140.0 Chloride 110.0 H Glucose 105 Lactate 0.8 FiO2 36.0 Potassium Carbon Dioxide Anion Gap BUN Creatinine Est GFR ( Amer) Est GFR (Non-Af Amer) Random Glucose Calcium Total Bilirubin AST ALT Alkaline Phosphatase Total Protein Albumin Globulin Albumin/Globulin Ratio Procalcitonin < 0.05 L Thyroxine (T4) TSH 3rd Generation Arterial Blood Potassium 4.1 Urine Color Yellow Urine Appearance Clear Urine pH 6.0 Ur Specific [place] 1.020 Urine Protein Negative Urine Glucose (UA) Negative Urine Ketones Negative Urine Blood Negative Urine Nitrate Negative Urine Bilirubin Negative Urine Urobilinogen 0.2 Ur Leukocyte Esterase Negative 11/24/17 11/24/17 11/24/17 05:00 05:00 05:30 WBC 5.8 D RBC 4.64 Hgb 12.9 Hct 40.3 MCV 86.9 MCH 27.8 MCHC 32.0 RDW 14.3 Plt Count 249 MPV 10.1 Gran % 82.4 H Lymph % (Auto) 14.5 L [place] % (Auto) 3.1 Eos % (Auto) 0.0 L Baso % (Auto) 0.0 Gran # 4.78 Lymph # (Auto) 0.8 L [place] # (Auto) 0.2 Eos # (Auto) 0.0 Baso # (Auto) 0.00 pCO2 pO2 HCO3 ABG pH ABG Total CO2 ABG O2 Saturation ABG Base Excess ABG Potassium Sodium 141 Chloride 109 H Glucose Lactate FiO2 Potassium 4.8 Carbon Dioxide 22 Anion Gap 14 BUN 21 Creatinine 1.0 Est GFR ( Amer) > 60 Est GFR (Non-Af Amer) 55 Random Glucose 126 H Calcium 9.4 Total Bilirubin 0.2 AST 24 ALT 41 Alkaline Phosphatase 60 Total Protein 6.8 Albumin 3.6 Globulin 3.1 Albumin/Globulin Ratio 1.2 Procalcitonin Thyroxine (T4) 9.6 TSH 3rd Generation 0.19 L Arterial Blood Potassium Urine Color Urine Appearance Urine pH Ur Specific [place] Urine Protein Urine Glucose (UA) Urine Ketones Urine Blood Urine Nitrate Urine Bilirubin Urine Urobilinogen Ur Leukocyte Esterase EKG/Cardiology Studies: Cardiology / EKG Studies 11/23/17 18:19 EKG [ELECTROCARDIOGRAM] Stat Comment: Reason For Exam: CHEST PAIN 11/24/17 EKG [ELECTROCARDIOGRAM] Routine Comment: Reason For Exam: atrial flutter Critical Care Progress Note - Nutrition Nutrition: Nutrition Category Date Time Status Heart Healthy Diet [DIET] Diets 11/22/17 Breakfast Ordered Attending/Attestation - Attestation I have personally seen and examined this patient.: Yes I have fully participated in the care of the patient.: Yes I have reviewed all pertinent clinical information: Yes Notes (Text): 11/24/17 14:18 67 yo female with aflutter and possible hyperthyroidism (TSH fluctuates in and out of normal zone, while T3 and T4 is within normal zone), currently followed up by endocrine service, who started her on methimazole and working her up for thyromegaly, thyroiditis, and Grave disease. Meanwhile patient was cardioverted and maintains hemodynamic stability. afebrile, no leukocytosis, procal low--> will stop abx. will touch base with Dr. Ferreira. thyroid US is in progress
[2017-11-24] MEDS ORDERED: Naloxone 0.4 mg/ml Inj (Adult) ONE (09:27)
[2017-11-24] MEDS ORDERED: Midazolam 2 MG/2 ML VIAL ONE (09:27)
[2017-11-24] MEDS ORDERED: Metoprolol 1 mg/ml Inj IVP ONE (09:27)
[2017-11-24] MEDS ORDERED: Flumazenil 0.1 mg/ml Inj (5ml) IVP ONE (09:27)
--- NOTE | 2017-11-24 09:29 | CON ---
DATE: 11/23/2017 LOCATION: In 129 CCU, room 4. HISTORY OF PRESENT ILLNESS: This is a 67-year-old female with known history of hypertension to the ER with a near syncopal episode and was discharged and seen at her primary physician's office and was found to have marked tachycardia and was sent back to the emergency room for reevaluation and eventual admission. At the emergency room, she was found to be in atrial flutter with a heart rate of 145 and a 2:1 conduction delay by EKG and was placed on a Cardizem drip infusion as noted. She is being referred now for evaluation of abnormal thyroid function studies. PAST MEDICAL HISTORY: History of hypertension and dyslipidemia. History of generalized anxiety and depression, on psychotropic medications, currently on Celexa as noted. History of a pulmonary embolism over 30 years ago and has not any kind of oral anticoagulation therapy. FAMILY HISTORY: Positive for hypertension and heart disease with no known thyroid endocrinopathy. SOCIAL HISTORY: The patient has supportive family. Admits to be a current smoker, but no other illicit drug use. REVIEW OF SYSTEMS: As mentioned above. Admits to generalized body weakness with progressive bouts of dizziness and lightheadedness, worse in the last 2 to 3 days prior to admission. Also admits to easy fatigability and tiredness with suboptimal energy level and episodic bifrontal headaches. No chest pains, but admits to progressive shortness of breath, initially on exertion, and then at rest with paroxysmal nocturnal dyspnea and also episodic palpitations especially worse on the day of admission. Her oral intake has been variable with nausea, dyspepsia, and hyperdefecation. PHYSICAL EXAMINATION: GENERAL: This is an overweight female, in no apparent distress. VITAL SIGNS: Blood pressure of 140/80, pulse of 120 beats per minute and irregular, temperature 98, respirations 20. Height is 5 feet 1 inch, weight is 179 pounds. HEENT: Head normocephalic. Eyes anicteric with pink conjunctivae. __345___ Ears, nose, and throat otherwise normal. NECK: Supple. Thyroid gland is normal size. No carotid bruits or cervical adenopathy. CARDIOPULMONARY: Some hyperdynamic precordium. S1 and S2 rapid and irregular. LUNGS: Clear to auscultation. Abdomen is flat, soft with positive bowel sounds. EXTREMITIES: No peripheral edema. Pulses are +2 bilaterally. LABORATORY DATA: Chemistry shows a BUN of 18. Sodium 139, potassium 4.92, chloride 105, CO2 of 25. Glucose 88. Creatinine 1.1. The initial TSH is 0.30 with a repeat TSH of 0.58 and a total T4 of 10 with troponin is less than 0.01. LDH is 348. ASSESSMENT: This is a 67-year-old female with a rapid atrial fibrillation and flutter, presenting here with a near syncopal episode and progressive dizziness and lightheadedness with progressive shortness of breath and also evaluated to have subclinical hyperthyroidism as noted thereof. The most common etiology would be the so-called autoimmune thyroiditis, i.e. Graves disease with no overt palpable thyroid nodules or bruits thereof. PLAN: Plan of management as discussed with the patient and staff. We will continue her Cardizem drip infusion as given and also the beta-blockers as initiated and we will start her also on the low-dose medical therapy with thioureas, i.e. Tapazole given as 5 mg p.o. b.i.d. after meals to start this afternoon as noted. We will obtain thyroid antibodies to include a thyroid stimulating immunoglobulin and a thyroid peroxidase antibody, which will confirm and/or indicate the presence of underlying thyroid autoimmunity. We will also obtain a repeat thyroid hormonal profile with a total and free T4 and TSH tomorrow morning. We will obtain serial chemistries and supplement accordingly as needed. A serum cortisol level will also be obtained as ordered. Although not urgent at this time, would recommend a routine thyroid ultrasound either prior to her discharge when she is in the medical floor and/or as outpatient thereof. We will follow and advise accordingly. Sara Ferreira MD
[2017-11-24] MEDS ORDERED: Midazolam 2 MG/2 ML VIAL IV ONE ×2 (09:42→09:48)
--- NOTE | 2017-11-24 11:16 | CARD ---
APPROVED REPORT EXAM: Transesophageal echocardiogram with color flow Doppler and Synchronized Cardioversion. INDICATION Atrial Fibrillation Reason For Test : Rule out Intracardiac Thrombus. PROCEDURE After obtaining informed consent, patient underwent transesophageal echo in the ICU. Type of Sedation : Conscious Sedation Sedation was achieved with Versed, Fentanyl intravenously. Transesophageal probe was inserted and advanced into esophagus without difficulty. The ELY was performed without complications. Synchronized Cardioversion acheived with 100 Joules after 1 attempt(s). Rhythm following Synchronized Cardioversion: Normal Sinus Rhythm Throughout the procedure, the blood pressure, pulse oximetry, cardiac rhythm, and rate were monitored. The patient tolerated the procedure without adverse effects. Recovery from conscious sedation was uneventful and vital signs were stable. LEFT VENTRICLE The left ventricle is normal size. There is normal left ventricular wall thickness. Due totachycardia, an accurate assessment of left ventricular ejection fraction could note be determined but there does appear to be mild diffuse hypokinesis present. RIGHT VENTRICLE The right ventricle is normal size. The right ventricular systolic function is normal. ATRIA The left atrium size is normal. No thrombus or spontaneous contrast is seen in the left atrial appendage. Normal Doppler velocities were recorded. The right atrium size is normal. The interatrial septum is intact with no evidence for an atrial septal defect. AORTIC VALVE The aortic valve is normal in structure. No aortic regurgitation is present. There is no aortic valvular stenosis. MITRAL VALVE The mitral valve is normal in structure. Mitral regurgitation is mild. TRICUSPID VALVE The tricuspid valve is normal in structure. There is mild tricuspid regurgitation. PULMONIC VALVE The pulmonary valve is normal in structure. GREAT VESSELS The aortic root is normal in size. The ascending aorta is normal in size. There ismoderate atherosclerotic plaque in the descending aorta. The IVC is normal in size and collapses >50% with inspiration. <Conclusion> Normal chamber size. Probable mild LV hypokinesis. Mild MR and TR. No ANGELINE thrombus or SEC seen. Successful cardioversion to NSR with 100 Joules.
[2017-11-24] MEDS: methIMAzole 5 MG TAB PO SCH ×2 (12:25→19:12)
[2017-11-24] MEDS: MethylPREDNISolone 40 mg Vial IVP SCH ×2 (12:25→22:45)
--- NOTE | 2017-11-24 13:05 | PN ---
DATE: 11/24/2017 SUBJECTIVE: The patient is seen lying in bed in the ICU. She is seen in the presence of her daughter. She remains in atrial flutter with a 2:1 conduction. She is unaware of any palpitations. She denies any chest pain or dyspnea. She is anxious to go home. CURRENT MEDICATIONS: Include Lovenox, Atrovent, metoprolol 50 mg every 6 hours, Pepcid 20 mg daily, Pulmicort inhaler, Solu-Medrol, Xopenex and she has been started on Tapazole. OBJECTIVE: GENERAL: She is an overweight middle-aged woman. VITAL SIGNS: Her blood pressure is 100/50 with a pulse of 120, respirations are 16. She is afebrile. HEENT: No JVD. CHEST: Bilateral scattered rhonchi. HEART: Tachycardic rhythm with systolic murmur present at the left sternal border. ABDOMEN: Soft, nontender, normoactive bowel sounds. EXTREMITIES: No edema. DIAGNOSTIC DATA: Potassium is 4.8, BUN and creatinine are 21 and 1, glucose 126. White count 5.8, hemoglobin and hematocrit 12.9 and 40.3 with a platelet count of 249,000. Echocardiogram was reviewed and study was somewhat limited. Chamber sizes appeared normal. Mild septal hypertrophy is present. Left ventricular systolic function cannot be adequately assessed because of heart rate. Mild mitral and moderate tricuspid regurgitations were noted. IMPRESSION: 1. Persistent atrial flutter, unclear if this is related to hypothyroid state given her low TSH. 2. Significant chronic obstructive pulmonary disease. 3. Probable sleep apnea. 4. History of tobacco abuse. 5. Recent syncope, possibly related to dysrhythmias. RECOMMENDATIONS: The patient will undergo transesophageal echocardiogram and possible cardioversion this morning assuming there is no evidence of left atrial thrombus. If this is successful, she will be switched to oral anticoagulant therapy for the next 6 weeks and maintain on beta-salbador therapy as well. The thyroid evaluation should proceed as planned. Smoking abstinence was encouraged and an eventual stress test will be planned. We will continue to follow and make further recommendations based upon the results of her transesophageal echocardiogram and possible cardioversion. Sujit Interiano MD [facility] # [id number]
--- NOTE | 2017-11-24 13:27 | CARD ---
APPROVED REPORT EKG Measurement Heart [id number] <Conclusion> Sinus rhythm, new, with 1 PVC PRWP
--- NOTE | 2017-11-24 14:30 | US ---
HISTORY: thyroid nodule TECHNIQUE: Sonographic evaluation of the thyroid gland. COMPARISON: None. FINDINGS: RIGHT LOBE: Measures 2.2 x 2.4 x 4.4 cm. Heterogenous echotexture, normal vascularity Nodules: Solitary solid nodule well-circumscribed hypoechoic upper pole 7 x 9.4 x 8.1 mm. LEFT LOBE: Measures 2.1 x 2.9 x 4.6 cm. Heterogenous echotexture, normal vascularity Nodules: Complex solid and cystic nodule upper pole 8.8 x 9 x 8.1 mm ISTHMUS: Measures 0.88 cm. Nodules: Midline isoechoic solid nodule 6 x 10 mm. OTHER FINDINGS: None . IMPRESSION: Heterogeneous gland, multiple (3) sub cm nodules bilaterally as well as the isthmus.
[2017-11-24] MEDS: Azithromycin 500MG/NS 250ml 500 MG/250 ML BAG IVPB SCH (19:40)
[2017-11-24] MEDS: cefTRIAXone 1 gm 1 GM/100 ML BAG IVPB SCH (19:40)
[2017-11-24] MEDS: Enoxaparin 80 mg Syringe SC SCH (19:40)
[2017-11-24] MEDS: Levalbuterol 0.63 MG/3 ML Inhal Soln UD IH PRN (20:18)
--- NOTE | 2017-11-25 00:13 | PN ---
DATE: ENDOCRINOLOGY FOLLOWUP NOTE LOCATION: Room 376. SUBJECTIVE: This is a 67-year-old female, presenting here with atrial flutter, followed closely for hemodynamic monitoring in the ICU and has since then improved clinically and metabolically as noted thereof. She was given a Cardizem drip infusion and also amiodarone infusion, and currently has been maintained on beta-adrenergic blockade medications as noted. Moreover, she was also evaluated to have subclinical hyperthyroidism and started on Tapazole given as 5 mg b.i.d. after meals as ordered. LABORATORY DATA: Her latest chemistry showed a BUN of 21, sodium 141, potassium 4.8, chloride 109, CO2 of 22, glucose 126 and creatinine 1.0. The repeat thyroid study showed a T4 of 10 and a repeat level of 9.6 with a TSH of 0.19 indicative of subclinical hyperthyroidism. PLAN: We will continue the Tapazole given as 5 mg b.i.d. and obtain serial thyroid studies, and adjust her dose regimen accordingly. We will obtain a thyroid ultrasound to ascertain also the exact thyroid lobe dimensions as noted. We will follow and advise accordingly. Sara Ferreira MD
[2017-11-25 05:27] VITALS: RESP 20
[2017-11-25 07:02] LABS: GRAN # 6.55 (1.4-6.5); GRAN % 83.3 % (50.0-68.0); HEMOGLOBIN 12.3 g/dL (12.0-16.0); LYMPH # 0.9 (1.2-3.4); LYMPH % 10.9 % (22.0-35.0); MEAN CELL VOLUME 87.5 fl (80.0-105.0); MEAN CORPUSCULAR HGB CONC 31.9 g/dl (31.0-37.0); MONO # 0.5 (0.1-0.6); MONO % 5.8 % (1.0-6.0); RBC 4.4 10^6/uL (3.5-6.1); RED CELL DISTRIBUTION WIDTH 14.4 % (11.5-14.5); WHITE BLOOD COUNT 7.9 10^3/ul (4.5-11.0)
[2017-11-25 07:10] LABS: ALB/GLOB RATIO 1.3 (1.1-1.8); ALBUMIN 3.6 g/dL (3.0-4.8); CALCIUM 9.4 mg/dL (8.4-10.5)
[2017-11-25 07:20] VITALS: BP 108/70; PULSE 63; TEMP 98.2; O2SAT 96
[2017-11-25] MEDS: Budesonide 0.5 mg/2 ml Inhal Susp UD IH SCH (07:48)
[2017-11-25] MEDS: Ipratropium 0.02% Inhal Soln (0.5 mg/2.5 ml) UD IH SCH (07:48)
--- NOTE | 2017-11-25 08:00 | CP.PCM.PN ---
Subjective - Date & Time of Evaluation Date of Evaluation: 11/25/17 Time of Evaluation: 07:00 - Subjective Subjective: Stable on 3R. No chest pain or SOB. S/P CV yesterday. Remains in sinus rhythm. V/S noted. RSR. PE: Lungs: clear Cor.: S1S2 Abd.: soft Ext.: no edema Neuro.: alert Labs noted. CBC OK, K+= 5.0, Cr.= 1.2, TFTs noted. BC X [address] Chest noted. Thyroid scan noted. ELY noted. ECG 11/24: RSR, PRWP Objective - Vital Signs/Intake and Output Vital Signs (last 24 hours): Temp Pulse Resp BP Pulse Ox 98.2 F 63 20 108/70 96 11/25/17 06:00 11/25/17 06:00 11/25/17 06:00 11/25/17 06:00 11/25/17 06:00 Intake and Output: 11/25/17 11/25/17 06:59 18:59 Intake Total 240 Balance 240 - Medications Medications: Current Medications Apixaban (Eliquis) 5 mg PO BID [facility] PRN Reason: Protocol Last Admin: 11/24/17 19:12 Dose: 5 mg Budesonide (Pulmicort Respules) 0.5 mg IH [id number] [facility] Last Admin: 11/25/17 07:48 Dose: 0.5 mg Famotidine (Pepcid) 20 mg PO BID [facility] Last Admin: 11/24/17 19:12 Dose: 20 mg Ipratropium [place] (Atrovent) 0.5 mg IH [id number] [facility] Last Admin: 11/25/17 07:48 Dose: 0.5 mg Levalbuterol HCl (Xopenex) 0.63 mg IH Q2H PRN PRN Reason: Shortness of Breath Last Admin: 11/24/17 20:18 Dose: 0.63 mg Methimazole (Tapazole) 5 mg PO BID [facility] Last Admin: 11/24/17 19:12 Dose: 5 mg Methylprednisolone (Solu-Medrol) 20 mg IVP Q12 [facility] Last Admin: 11/24/17 22:45 Dose: 20 mg Metoprolol Tartrate (Lopressor) 50 mg PO BID [facility] Last Admin: 11/24/17 19:12 Dose: 50 mg - Labs Labs: 11/25/17 06:20 11/25/17 06:20 PT 12.1 SECONDS (9.4-12.5) 11/22/17 17:40 INR 1.06 (0.93-1.08) 11/22/17 17:40 APTT 29.5 Seconds (25.1-36.5) 11/22/17 17:40 Assessment and Plan - Assessment and Plan (Free Text) Assessment: Syncope at home A. Flutter s/p ELY CV to RSR HBP COPD/Smoker H/O remote PE Depression GB surgery/Ventral Hernia Repair HLD Plan: PO metoprolol and Eliquis Recheck echo is RSR Will arrange out-pt ETT D/C tobacco per Endocrinology, Dr. Adis MELO as dilma. PT
--- NOTE | 2017-11-25 08:14 | CON ---
DATE: 11/25/2017 PULMONARY CONSULTATION REFERRING PHYSICIAN: Dr. Arceo. REASON FOR CONSULTATION: Solitary pulmonary nodule. I did discuss the case with the night nurse at length. I have also reviewed the chart at length, and discussed the case with the patient at length. HISTORY OF PRESENT ILLNESS: The patient is a 67-year-old female, with past medical history significant for chronic obstructive pulmonary disease, positive extensive smoking history-still smokes, hypertension and thyroid disease, who presented to [facility]-originally on 11/22/2017-with main complaints of dizziness and weakness. Apparently, the patient was seen by Dr. Arceo in his office. Dr. Arceo noted that the patient's heart rate was rapid and sent the patient to the emergency room. In the emergency room, the patient was noted to be in atrial flutter. She was thus admitted for additional evaluation. The patient is not short of breath at rest. She does have chronic dyspnea on exertion-which has not changed. She also has a chronic cough with occasional sputum production-also not changed. There is no history of chest pain, coughing up of blood, or chest pain-made worse with deep respirations. There is no history of temperatures, chills or infectious exposure. There is no history of night sweats, weight loss or appetite change prior to the above events. No history of leg or calf pains. The patient did have a syncopal episode (witnessed by daughter) last week. The patient did fall to the floor, but did not sustain any significant injuries. There is no history of travel. REVIEW OF SYSTEMS: No history of nausea, vomiting or diarrhea. No acute urinary symptoms. Rest of the review of systems is noncontributory. ALLERGIES: NO KNOWN ALLERGIES. SOCIAL HISTORY: Positive for extensive tobacco usage. No alcohol. FAMILY HISTORY: No inheritable diseases. HOME MEDICATIONS: Include Celexa, Zestril and albuterol HFA. PHYSICAL EXAMINATION: GENERAL: The patient appears comfortable this morning. She is not short of breath at rest. She is not using accessory muscles for breathing. VITAL SIGNS: Temperature is 98.1, pulse is 64, respirations 18/20, blood pressure 120/66. Oxygen saturation on nasal cannula is 95%. HEENT: Normocephalic, atraumatic. NECK: No JVD. CARDIOVASCULAR: Positive S1, S2. No S3 gallop. LUNGS: Decreased breath sounds at the bases. Mild rhonchi bilaterally. No wheezing. EXTREMITIES: No clubbing, cyanosis or edema. Calves are nontender to palpation. GI: Abdomen is soft, nontender, nondistended. Bowel sounds are positive. SKIN: No acute rash. NEUROLOGIC: Exam limited at the present time. PERTINENT LABORATORY DATA: CAT scan of the chest was done as an angiogram protocol. There is no pulmonary embolism seen. There is a small consolidation at the anterior basal segment of the right lower lobe. This appears to be most consistent with either subsegmental atelectasis or scar. There are also very minimal consolidations at the posterior lung bases consistent with atelectasis. Lastly, there is a 10-mm nodule noted at the right lung base. CBC: White count 5.8, hemoglobin 12.9, hematocrit 40.3, platelets of 249,000. Arterial blood gas was done on nasal cannula on 11/23/2017. Results are pH 7.39, pCO2 of 37, pO2 of 76. Complete metabolic profile: Glucose 126. Rest of the metabolic profiles within normal limits. Procalcitonin was done on 11/23/2017, it is negative at less than 0.05. IMPRESSION: 1. Cardiac arrhythmias, status post cardioversion. 2. Status post syncopal episode at home. 3. Chronic obstructive pulmonary disease-probably advanced. 4. Solitary pulmonary nodule, right lung base. 5. Thyroid disease. PLAN: Again, I did discuss the case with the night nurse at length. I have also discussed the case with the patient at length and reviewed the chart at length. Patient initially presented to [facility]-on 11/22/2017-with main complaints of dizziness and weakness. As above, the patient was at Dr. Arceo's office prior to her ER visit. Dr. Arceo noted a rapid heart rate and sent the patient to the emergency room for additional evaluation. In the emergency room, the patient was noted to be in atrial flutter, and subsequently admitted. The patient has subsequently undergone cardioversion and is now in normal sinus rhythm. I would continue with the Cardiology evaluation-noted. I did review the CAT scan of the chest-as above. There is a small consolidation at the anterior basal segment of the right lower lobe. There are also small consolidations noted at both lung bases. These consolidations are most consistent with atelectasis and/or scar. Lastly, there is a 10-mm nodule noted at the right lung base. I did discuss the CAT scan with the patient at length this morning. I told her that it is imperative that these abnormalities on her CAT scan be followed as an outpatient. I did give her my card/information for a followup appointment. She agrees to come to see me in the office. On physical exam, there is mild bronchospasm noted. I will continue with the current nebulizer treatments and low-dose intravenous steroids for now. Again, there is no history of temperatures. There is no history of leukocytosis. Lastly, the procalcitonin was negative. The clinical status of the patient appears significantly improved-compared to the initial presentation. However, given the above, her future status/prognosis does remain guarded. Again, hopefully, she will come to see me in the office for followup of her pulmonary nodule. I will discuss the above with Dr. Arceo. Thank you very much for this pulmonary consultation. Marco A Savage MD [facility]
--- NOTE | 2017-11-25 08:59 | PN ---
DATE: 11/25/2017 SUBJECTIVE: The patient has no complaints of any chest pain. No shortness of breath. She says her anxiety is under control. She has no headaches or dizziness. PHYSICAL EXAMINATION: VITAL SIGNS: Temperature is 98.1, pulse of 66, blood pressure is 120/66, respirations 20. GENERAL: The patient is lying in bed, flat, comfortable. HEENT: No oral lesion. Anicteric sclerae. Moist mucosa. NECK: No JVD, adenopathy, or thyromegaly. CARDIOVASCULAR: S1 and S2, regular. No murmurs, rubs, or gallops. LUNGS: Clear to auscultation bilaterally. No wheeze, rales, or rhonchi. ABDOMEN: Bowel sounds are positive, soft, nontender and nondistended. EXTREMITIES: No cyanosis, clubbing or edema. ASSESSMENT: 1. Atrial flutter, status post synchronized cardioversion, now in sinus rhythm. 2. Thyroid nodules. 3. Hyperthyroidism, new onset. 4. Syncope, improved. 5. Dyslipidemia. 6. Hypertension. 7. Anxiety. 8. Loculated fluid in the lungs. 9. A 10 mm nodule in the right lung base. 10. Mediastinal adenopathy. PLAN: The patient had successful cardioversion yesterday. She is on Eliquis for anticoagulation. The patient is on metoprolol. She is going to continue with Pulmicort. She is on steroids. The patient is being followed by Dr. Ferreira from Endocrinology. The patient is on methimazole. She is currently comfortable. Abdiaziz Arceo MD
[2017-11-25] MEDS ORDERED: Pneumococcal 23-Valent Vaccine IM ONE (10:42)
[2017-11-25] MEDS: methIMAzole 5 MG TAB PO SCH (10:48)
[2017-11-25] MEDS: MethylPREDNISolone 40 mg Vial IVP SCH (10:48)
--- NOTE | 2017-11-26 00:14 | PN ---
DATE: ENDOCRINOLOGY FOLLOWUP NOTE LOCATION: CCU 129, room 4. SUBJECTIVE: This is a 67-year-old female presenting here with rapid atrial flutter and has since then improved clinically and hemodynamically as noted thereof. She is also being followed closely for metabolic management for recent evaluation of subclinical hyperthyroidism and has been started on medical therapy and is tolerating the medications fairly well at this time. Her latest chemistry shows a BUN of 44, sodium 140, potassium 5.0, chloride 108, CO2 of 23, glucose 136, and creatinine 1.2. Her latest thyroid studies show a T4 of 9.6 mcg/dL with a TSH of 0.19. The thyroid antibodies, i.e., the thyroid peroxidase antibody and thyroid stimulating immunoglobulin are pending at this time and this will confirm and/or indicate the presence of underlying thyroid autoimmunity. In the meantime, we will continue the Tapazole at the low dose of 5 mg p.o. t.i.d. after meals as ordered. She will follow with her medical doctor for outpatient and ongoing medical and thyroid management. We will continue the beta adrenergic blockade as ordered. We will follow this. Sara Ferreira MD
--- NOTE | 2017-11-26 08:55 | CARD ---
APPROVED REPORT EXAM: Two-dimensional and M-mode echocardiogram with Doppler and color Doppler. Other Information Quality : GoodRhythm : INDICATION F/U ECHO : EVALUATE MR AND LVFX in NSR. 2D DIMENSIONS Left Atrium (2D)4.2 (1.6-4.0cm)IVSd0.9 (0.7-1.1cm) LVDd5.1 (3.9-5.9cm)PWd1.0 (0.7-1.1cm) LVDs3.8 (2.5-4.0cm)FS (%) 25.7 % LVEF (%)50.5 (>50%) M-Mode DIMENSIONS Aortic Root3.00 (2.2-3.7cm)Aortic Cusp Exc.1.60 (1.5-2.0cm) Aortic Valve AoV Peak Lxneioku678.0cm/Matt Peak GR.6mmHg Mitral Valve MV E Yrhikjfm245.0cm/sMV A Dgbpfbko06.6cm/sE/A ratio2.0 TDI Lateral E' Peak V9.16cm/sMedial E' Peak V6.82cm/sE/Lateral E'14.6 E/Medial E'19.6 Pulmonary Valve PV Peak Hbyojqrd46.2cm/sPV Peak Grad.1mmHg Tricuspid Valve TR Peak Hvviuxrv218dj/sRAP PRNCKFTU00isKkFR Peak Gr.69mmHg [id number] LEFT VENTRICLE The left ventricle is normal size. There is normal left ventricular wall thickness. The left ventricular function is normal. The left ventricular ejection fraction is within the normal range. There is normal LV segmental wall motion. RIGHT VENTRICLE The right ventricle is normal size. ATRIA The left atrium is mildly dilated. The right atrium is mildly dilated. The interatrial septum is intact with no evidence for an atrial septal defect. AORTIC VALVE The aortic valve is normal in structure. MITRAL VALVE The mitral valve is normal in structure. Mitral regurgitation is mild. TRICUSPID VALVE The tricuspid valve is normal in structure. There is moderate tricuspid regurgitation. There is moderate-severe pulmonary hypertension. GREAT VESSELS The aortic root is normal in size. PERICARDIAL EFFUSION There is no pericardial effusion. <Conclusion> The left ventricle is normal size. There is normal left ventricular wall thickness. The left ventricular function is normal. Mitral regurgitation is mild. There is moderate tricuspid regurgitation. There is moderate-severe pulmonary hypertension.
[2017-11-26 18:57] LABS: TSI 95 % baseline (<140)
== END 2017-11-25 11:59 | disposition home or self-care (01) | DRG 309 ==
LOC: ED 17:10 → ERH 19:48 → CCU 11-23 00:20 → 3RSO 11-24 17:40
PROVIDERS: ADMIT Internal Medicine Nephrology; ATTEND Internal Medicine Nephrology
PROC: 3E0F7GC Introduction of Other Therapeutic Substance into Respiratory Tract, Via Natural or Artificial Opening (ICD-10-PCS; 2017-11-23)
PROC: B24BZZ4 Ultrasonography of Heart with Aorta, Transesophageal (ICD-10-PCS; principal; 2017-11-24 09:30)
DX: I48.92 Unspecified atrial flutter (principal); E05.20 Thyrotoxicosis with toxic multinodular goiter without thyrotoxic crisis or storm; I48.91 Unspecified atrial fibrillation; J98.11 Atelectasis; I10 Essential (primary) hypertension; J44.9 Chronic obstructive pulmonary disease, unspecified; F40.240 Claustrophobia; R00.0 Tachycardia, unspecified; E78.5 Hyperlipidemia, unspecified; F41.1 Generalized anxiety disorder; R91.1 Solitary pulmonary nodule; R59.0 Localized enlarged lymph nodes; E66.9 Obesity, unspecified; Z68.33 Body mass index [BMI] 33.0-33.9, adult; F17.210 Nicotine dependence, cigarettes, uncomplicated; Z91.81 History of falling; Z86.711 Personal history of pulmonary embolism